=== PATIENT | male | born 1965 | race Caucasian/White ===

== ENCOUNTER 2023-05-21 22:39 | Observation (INO) | payer MEDICAID, SELFPAY ==
[2023-05-21 22:48] VITALS: BP 116/71; PULSE 102; RESP 22; TEMP 36.7; BMI 16.8
--- NOTE | 2023-05-21 22:59 | ED_ITS ---
HPI - General Adult General Chief complaint: Shortness of Breath/Dyspnea Stated complaint: Shorthness of Breath Time Seen by Provider: 05/21/23 22:58 Source: patient Mode of arrival: walk-in History of Present Illness HPI narrative: patient has history of COPD, is a daily smoker and also an alcoholic. Drinks beer daily. Not aware of any withdrawal from alcohol because he is always drinking. Was seen by his PCP and medical technician assistant 3 days ago and informed he needed to be in the hospital due to low oxygen levels. He denies any chest pain. no more short of breath than usual. No nausea or fever Related Data Home Medications Medication Instructions Recorded Confirmed albuterol sulfate 90 mcg/actuation 2 inh inhalation Q4H 05/21/23 05/21/23 aerosol inhaler budesonide-formoterol HFA 160 2 puff inhalation Q12H 05/21/23 05/21/23 mcg-4.5 mcg/actuation aerosol inhaler (Symbicort) meloxicam 15 mg tablet 15 mg PO QDAY 05/21/23 05/21/23 montelukast 10 mg tablet 10 mg PO QDAY 05/21/23 05/21/23 omeprazole 20 mg capsule,delayed 20 mg PO QDAY 05/21/23 05/21/23 release Allergies Allergy/AdvReac Type Severity Reaction Status Date / Time No Known Drug Allergies Allergy Verified 05/21/23 22:55 Review of Systems ROS Status of ROS 10 or more systems reviewed and unremarkable except as noted in history and below PFSH [facility] Medical History (Updated 05/22/23 @ 05:53 by Beth Walker RN) COPD (chronic obstructive pulmonary disease) ?J44.9 - Chronic obstructive pulmonary disease, unspecified (ICD-10) Kidney disease ?N28.9 - Disorder of kidney and ureter, unspecified (ICD-10) Liver disease ?K76.9 - Liver disease, unspecified (ICD-10) Family History (Updated 05/22/23 @ 05:54 by Beth Walker RN) Other Family history of COPD (chronic obstructive pulmonary disease) Family history of cancer Social History (Updated 05/22/23 @ 05:57 by Beth Walker RN) Within the past year, how often did you have a drink containing alcohol: 4 or more times a week Within the past year, how many standard drinks containing alcohol did you have on a typical day: 7 to 9 Within the past year, how often did you have six or more drinks on one occasion: daily or almost daily Total score: 10 Score interpretation: A score of 4 or more indicates drinking is likely to affect patient's safety. Smoking status: Current every day smoker Non-prescribed substance use: cannabis (any form) Highest level of school completed/degree received: GED or equivalent Are you now , , , , never or living with a partner: never In a typical week, how many times do you talk on the telephone with family, friends, or neighbors: twice per week How often do you get together with friends or relatives: twice per week How often do you attend pentecostal or oriental orthodox services: never Do you belong to any clubs or organizations such as pentecostal groups unions, [employer] or athletic groups, or school groups: no Total score: 1 Score interpretation: A score of less than or equal to 1 indicates the most socially isolated. Little interest or pleasure in doing things: several days Feeling down, depressed, or hopeless: several days Feel stressed/tense/nervous/anxious/difficulty sleeping: to some extent Do you think of yourself as: straight/heterosexual Gender Identity: male Exam Constitutional Vital Signs, click to edit/add: Last Vital Signs Temp 97.8 F 05/22/23 05:55 Pulse 68 05/22/23 05:55 Resp 18 05/22/23 05:55 BP 100/64 05/22/23 05:55 Pulse Ox 95 05/22/23 05:55 O2 Del Method Nasal Cannula 05/22/23 05:55 O2 Flow Rate 2 05/22/23 05:55 FiO2 2 05/22/23 01:06 Common normals: no apparent distress (RA pulse ox after he walked into the exam room was 84%. No distress) and well nourished (pulse ox shortly improved to >90% after sitting down) Eye Common normals: PERRL, EOMs intact bilaterally and conjunctivae normal Respiratory Other: diminished breath sounds Cardio Common normals: regular rate, regular rhythm, S1 normal heart sound and S2 normal heart sound GI Common normals: Normal to inspection, nondistended, normoactive bowel sounds present and soft to palpation Extremity Common normals: normal to inspection and full ROM Neuro Common normals: oriented x3, CN's II-XII intact bilaterally, moves all extremities and no focal motor deficits Psych Appearance: grossly normal Course Vital Signs Vital signs: Vital Signs Temperature 98.0 F 05/21/23 22:48 Pulse Rate 102 H 05/21/23 22:48 Respiratory Rate 22 05/21/23 22:48 Blood Pressure 116/71 05/21/23 22:48 Oxygen Delivery Method Room Air 05/21/23 22:48 Temperature 97.8 F 05/22/23 05:55 Pulse Rate 68 05/22/23 05:55 Respiratory Rate 18 05/22/23 05:55 Blood Pressure 100/64 05/22/23 05:55 Pulse Oximetry 95 05/22/23 05:55 Oxygen Delivery Method Nasal Cannula 05/22/23 05:55 Oxygen Delivery Flow Rate 2 05/22/23 05:55 Fraction of Inspired Oxygen 2 05/22/23 01:06 Medical Decision Making MDM Narrative Medical decision making narrative: history of COPD , daily smoker and alcoholic. Daily drinker. Advised by his medical technician assistant he should be hospitalized because of his lungs and low levels of oxygen. Pulse ox when he first got into the exam room was 84%. After he sat down it increased to 90%. since he has been waiting it drop back down to 86% on RA at rest. cxray with emphysematous changes. sodium 129 and ETOH 192. Patient is agreeable to stay in the hospital overnight Lab Data Labs: Lab Results 05/21/23 Range/Units 23:06 WBC 5.8 (4.0-11.0) 10^3/uL RBC 4.08 L (4.70-6.10) 10^6/uL Hgb 14.4 (14.0-18.0) g/dL Hct 41.6 L (42.0-54.0) % MCV 102.0 H (80.0-94.0) fL MCH 35.3 H (25.9-34.0) pg MCHC 34.6 (29.9-35.2) g/dL RDW 13.6 (11.0-15.0) % Plt Count 143 L (150-450) 10^3/uL MPV 9.6 (9.5-13.5) fL Neut % (Auto) 52.9 (43.0-75.0) % Lymph % (Auto) 33.4 (20.5-60.0) % Gilliam % (Auto) 11.7 (1.7-12.0) % Eos % (Auto) 1.0 (0.9-7.0) % Baso % (Auto) 0.7 (0.2-2.0) % Neut # (Auto) 3.0 (1.4-6.5) 10^3/uL Lymph # (Auto) 1.9 (1.2-3.8) 10^3/uL [place] # (Auto) 0.7 (0.3-0.8) 10^3/uL Eos # (Auto) 0.1 (0.0-0.7) 10^3/uL Baso # (Auto) 0.0 (0.0-0.1) 10^3/uL Abs Immat Gran (auto) 0.02 (0.00-0.03) 10^3/uL Imm/Tot Granulo (auto) 0.3 (0.0-0.5) % Sodium 129 L (136-145) mmol/L Potassium 3.9 (3.5-5.1) mmol/L Chloride 92 L (98-107) mmol/L Carbon Dioxide 29.1 (21.0-32.0) mmol/L Anion Gap 11.8 BUN 5.0 L (7.0-18.0) mg/dL Creatinine 0.65 L (0.70-1.30) mg/dL Est GFR ( Amer) >60 (>=60) Est GFR (Non-Af Amer) >60 (>=60) BUN/Creatinine Ratio 7.7 Glucose 80 (74-106) mg/dL Calcium 8.1 L (8.5-10.1) mg/dL Total Bilirubin 0.7 (0.2-1.0) mg/dL AST 22 (15-37) U/L ALT 23 (16-63) U/L Alkaline Phosphatase 73 (46-116) U/L Troponin I High Sens 7.4 (4.0-76.1) pg/mL Total Protein 6.7 (6.4-8.2) g/dL Albumin 3.6 (3.4-5.0) g/dL Globulin 3.1 g/dL Albumin/Globulin Ratio 1.2 Ethanol Quant 192 mg/dL Discharge Plan Discharge Chief Complaint: Shortness of Breath/Dyspnea Clinical Impression: Alcohol abuse, Hypoxemia, Emphysema of lung Time of Disposition Decision: 00:56 Condition: Fair Discharge Date/Time: 05/22/23 04:15
--- NOTE | 2023-05-21 23:05 | XR_ITS ---
The [address] [address] Patient Name: VINAY SCHWARZ MRN: [id number] date: 1965 Sex: M Assigned Patient Location: ER Current Patient Location: ER Accession/Order Number: [id number] Exam Date: 05/21/2023 23:50 Report Date: 05/22/2023 00:12 At the request of: DANNY RAMÍREZ Procedure: XR chest 1V EXAM: XR chest 1V HISTORY: short of breath COMPARISON: CT chest 02/11/2021, chest x-ray 02/11/2022 TECHNIQUE: Single frontal view chest x-ray FINDINGS: Extensive bilateral COPD with hyperexpanded right lung. Mild bilateral lower lung linear atelectatic/scar. Mildly prominent thoracic aortic contour, similar to prior exams. Cardiac size is unremarkable. No lung consolidation, large pleural effusions, pneumothorax, or acute bony abnormality. Remote bilateral ribs deformity. XR/XR chest 1V IMPRESSION: Extensive bilateral COPD with hyperexpanded right lung. Mild bilateral lower lung linear atelectatic/scar. Mildly prominent thoracic aortic contour, similar to prior exams. Electronically authenticated by: NUVIA PRICE Date: 05/22/2023 00:12
[2023-05-21 23:14] VITALS: O2SAT 92
[2023-05-21 23:19] LABS: Basophils Percent Auto 0.7 % (0.2-2.0); Eosinophils Absolute Auto 0.1 10^3/uL (0.0-0.7); Hematocrit 41.6 % (42.0-54.0); Hemoglobin 14.4 g/dL (14.0-18.0); Immature Granulocytes Abs Auto 0.02 10^3/uL (0.00-0.03); Immature Granulocytes Pct Auto 0.3 % (0.0-0.5); Lymphocytes Absolute Auto 1.9 10^3/uL (1.2-3.8); Lymphocytes Percent Auto 33.4 % (20.5-60.0); Mean Corpuscular HGB Conc 34.6 g/dL (29.9-35.2); Mean Corpuscular Hemoglobin 35.3 pg (25.9-34.0); Mean Platelet Volume 9.6 fL (9.5-13.5); Monocytes Absolute Auto 0.7 10^3/uL (0.3-0.8); Monocytes Percent Auto 11.7 % (1.7-12.0); Neutrophils Percent Auto 52.9 % (43.0-75.0); Platelet Count 143 10^3/uL (150-450); Red Blood Count 4.08 10^6/uL (4.70-6.10); Red Cell Distribution Width 13.6 % (11.0-15.0); White Blood Count 5.8 10^3/uL (4.0-11.0)
[2023-05-21 23:38] LABS: Alanine Aminotransferase 23 U/L (16-63); Albumin Globulin Ratio 1.2; Albumin Level 3.6 g/dL (3.4-5.0); Alkaline Phosphatase 73 U/L (46-116); Anion Gap 11.8; Aspartate Amino Transferase 22 U/L (15-37); BUN Creatinine Ratio 7.7; Bilirubin Total 0.7 mg/dL (0.2-1.0); Calcium 8.1 mg/dL (8.5-10.1); Carbon Dioxide 29.1 mmol/L (21.0-32.0); Chloride 92 mmol/L (98-107); Estimated GFR (African America >60 (>=60); Estimated GFR (Non-African Ame >60 (>=60); Ethanol 192 mg/dL; Globulin 3.1 g/dL; Glucose 80 mg/dL (74-106); Potassium 3.9 mmol/L (3.5-5.1); Sodium 129 mmol/L (136-145); Total Protein 6.7 g/dL (6.4-8.2); Troponin I High Sensitivity 7.4 pg/mL (4.0-76.1)
[2023-05-22] VITALS (20 sets, daily range): BP systolic 91–142; BP diastolic 46–83; PULSE 68–102; RESP 18–20; TEMP 36.6; O2SAT 77–97; BMI 17.2
--- NOTE | 2023-05-22 01:49 | CT_ITS ---
[address] [address] Patient Name: VINAY SCHWARZ MRN: [id number] date: 1965 Sex: M Assigned Patient Location: ER Current Patient Location: [place] Accession/Order Number: [id number] Exam Date: 05/22/2023 02:18 Report Date: 05/22/2023 23:37 At the request of: DANNY RAMÍREZ Procedure: CT angio chest EXAMINATION: CT angio chest, 05/22/2023 2:18 AM EDT HISTORY: Shortness of breath. COMPARISON: 02/11/2021. TECHNIQUE: CT angiography of the chest was performed with IV contrast. MIP (maximum intensity projection) images or 3D post processing was performed. CT dose reduction technique was used, including Automated Exposure Control. FINDINGS: TUBES AND IMPLANTS: None. CHEST: CHEST WALL AND LOWER NECK: Unremarkable. MEDIASTINUM AND SNEHAL: Unremarkable. BONES: Dextroconvex scoliosis. No suspicious lesions. Multilevel degenerative changes of the spine. AORTA: Ectatic aortic root measuring 4.5 cm. No dissection. PULMONARY ARTERIES: No embolism. CORONARY ARTERIES: Severe coronary artery calcifications. HEART: Not enlarged. LUNG AND AIRWAYS: Background of moderate centrilobular and paraseptal emphysema. PLEURA: Unremarkable. UPPER ABDOMEN: No acute finding. CT/CT angio chest IMPRESSION: 1. No evidence of pulmonary embolism or other acute intrathoracic process. 2. Background of moderate centrilobular and paraseptal emphysema. 3. Severe coronary artery calcification. 4. Ectatic aortic root measuring 4.5 cm. Electronically authenticated by: DEVEN CAMPOS Date: 05/22/2023 23:37
[2023-05-22] MEDS: 0.9 % SODIUM CHLORIDE 1,000 ML 1000 ML IV (01:55)
[2023-05-22 06:32] LABS: Basophils Percent Auto 0.5 % (0.2-2.0); Eosinophils Absolute Auto 0.1 10^3/uL (0.0-0.7); Eosinophils Percent Auto 1.2 % (0.9-7.0); Hematocrit 39.2 % (42.0-54.0); Hemoglobin 13.7 g/dL (14.0-18.0); Immature Granulocytes Abs Auto 0.03 10^3/uL (0.00-0.03); Immature Granulocytes Pct Auto 0.5 % (0.0-0.5); Lymphocytes Absolute Auto 1.2 10^3/uL (1.2-3.8); Mean Corpuscular HGB Conc 34.9 g/dL (29.9-35.2); Mean Corpuscular Hemoglobin 35.8 pg (25.9-34.0); Mean Corpuscular Volume 102.3 fL (80.0-94.0); Mean Platelet Volume 9.3 fL (9.5-13.5); Monocytes Absolute Auto 0.7 10^3/uL (0.3-0.8); Monocytes Percent Auto 12.3 % (1.7-12.0); Neutrophils Absolute Auto 3.9 10^3/uL (1.4-6.5); Neutrophils Percent Auto 65.5 % (43.0-75.0); Platelet Count 130 10^3/uL (150-450); Red Blood Count 3.83 10^6/uL (4.70-6.10); Red Cell Distribution Width 13.8 % (11.0-15.0)
[2023-05-22 06:49] LABS: Alanine Aminotransferase 19 U/L (16-63); Albumin Globulin Ratio 1.1; Albumin Level 3.1 g/dL (3.4-5.0); Alkaline Phosphatase 80 U/L (46-116); Anion Gap 10.4; Aspartate Amino Transferase 10 U/L (15-37); BUN Creatinine Ratio 10.5; Bilirubin Total 0.5 mg/dL (0.2-1.0); Carbon Dioxide 30.9 mmol/L (21.0-32.0); Chloride 98 mmol/L (98-107); Estimated GFR (African America >60 (>=60); Estimated GFR (Non-African Ame >60 (>=60); Globulin 2.9 g/dL; Glucose 83 mg/dL (74-106); Potassium 4.3 mmol/L (3.5-5.1); Sodium 135 mmol/L (136-145)
[2023-05-22 06:53] LABS: INR 0.97; Prothrombin Time 10.3 sec (9.0-11.6)
--- NOTE | 2023-05-22 08:24 | P.HP_ITS ---
H&P: HPI History of Present Illness Chief complaint: Shorthness of Breath Narrative: patient is a 57-year-old male with past medical history of smoking about a pack and a half a day, known chronic obstructive pulmonary disease emphysema and GERD.patient reports a proximally five months ago developed a acute viral illness that affected his breathing creating more shortness of breath. He has been visiting his primary care physician and has pulmonary nurse practitioner who both told him recently that his oxygen saturations were low and he needed to go to the Emergency Room. He finally presented to the emergency room last night with some shortness of breath. This morning he states the shortness of breath is still there he is using 2 L nasal cannula. He also notes that he has not been using his inhalers like he should. He still continues to smoke and has no desire to quit.he also drinks daily and his ethanol level was of elevated at the time of admission.patient had a normal white blood cell count of 6.0, normal troponins,normal chest x-ray and CTA with exception of moderate emphysema noted with severe coronary artery calcifications. Patient was admitted for further plan of care. At the time of admission exam he denies any coughing fevers chills or shortness of breath. Review of Systems ROS Narrative ROS: a complete review of systems were reviewed with patient and are positive as below or listed in History of Chief Complaint. General: no fever, chills, night sweats Head: no headache, trauma, visual changes, nausea or vomiting Skin: no reported rashes, itching or sores Eyes: no blurriness of vision Ears: no reported hearing loss, vertigo, earache, or tinnitus Throat: no sore throat, hoarseness, swelling of neck, or tongue pain Heart: no chest pain Lungs:some shortness of breath no cough GI: no diarrhea or vomiting/nausea Urinary: no urinary urgency, frequency or pain Neuro: no numbness or tingling HEM: no bleeding issues or bruising ENDO: no thyroid problems Psych: no anxiety or depression [facility] Medical History COPD (chronic obstructive pulmonary disease) ?J44.9 - Chronic obstructive pulmonary disease, unspecified (ICD-10) Kidney disease ?N28.9 - Disorder of kidney and ureter, unspecified (ICD-10) Liver disease ?K76.9 - Liver disease, unspecified (ICD-10) Family History Other Family history of COPD (chronic obstructive pulmonary disease) Family history of cancer Social History Within the past year, how often did you have a drink containing alcohol: 4 or more times a week Within the past year, how many standard drinks containing alcohol did you have on a typical day: 7 to 9 Within the past year, how often did you have six or more drinks on one occasion: daily or almost daily Total score: 10 Score interpretation: A score of 4 or more indicates drinking is likely to affect patient's safety. Smoking status: Current every day smoker Non-prescribed substance use: cannabis (any form) Highest level of school completed/degree received: GED or equivalent Are you now , , , , never or living with a partner: never In a typical week, how many times do you talk on the telephone with family, friends, or neighbors: twice per week How often do you get together with friends or relatives: twice per week How often do you attend yarsanism or jewish services: never Do you belong to any clubs or organizations such as yarsanism groups unions, fraternal or athletic groups, or school groups: no Total score: 1 Score interpretation: A score of less than or equal to 1 indicates the most socially isolated. Little interest or pleasure in doing things: several days Feeling down, depressed, or hopeless: several days Feel stressed/tense/nervous/anxious/difficulty sleeping: to some extent Do you think of yourself as: straight/heterosexual Gender Identity: male Meds Home Medications and Allergies Home Medications Medication Instructions Recorded Confirmed Type albuterol sulfate 90 mcg/actuation 2 inh inhalation Q4H 05/21/23 05/21/23 Hi story aerosol inhaler budesonide-formoterol HFA 160 2 puff inhalation Q12H 05/21/23 05/21/23 History mcg-4.5 mcg/actuation aerosol inhaler (Symbicort) meloxicam 15 mg tablet 15 mg PO QDAY 05/21/23 05/21/23 History montelukast 10 mg tablet 10 mg PO QDAY 05/21/23 05/21/23 History omeprazole 20 mg capsule,delayed 20 mg PO QDAY 05/21/23 05/21/23 History release Allergies Allergy/AdvReac Type Severity Reaction Status Date / Time No Known Drug Allergies Allergy Verified 05/21/23 22:55 Exam Narrative Exam Narrative: General: Patient is alert, and oriented to person, place and time with normal affect, proper hygiene, cachexia noted Skin: no visible rashes, or ulcers Head: atraumatic, acephalic Eyes: PERRLA, no nystagmus present, conjunctiva clear, no scleral icterus Ears: normal gross auditory acuity Nose: symmetric, no discharge, no maxillary or frontal sinus tenderness Mouth/Throat: no erythema, exudate, or tonsillar enlargement, normal dentition Neck: no masses palpated, normal thyroid, no JVD or audible carotid bruits Heart: Normal rate and rhythm, no murmurs/rubs/gallops Lungs: no audible wheezes, crackles and diminished breath sounds all lung whaley Abdomen: Normal audible bowel sounds, no distension, No palpable masses, no organomegaly, no rebound/guarding/ or rigidity Musculoskeletal: muscle atrophy noted, ROM is limited due to being in hospital bed, no swelling bilateral lower extremities Neuro: CN II-X grossly intact, normal sensation upper and lower extremities Constitutional Vital Signs, click to edit/add: Last Vital Signs Temp 97.8 F 05/22/23 05:55 Pulse 68 05/22/23 05:55 Resp 18 05/22/23 05:55 BP 100/64 05/22/23 05:55 Pulse Ox 95 05/22/23 05:55 O2 Del Method Nasal Cannula 05/22/23 05:55 O2 Flow Rate 2 05/22/23 05:55 FiO2 2 05/22/23 01:06 Results Labs Labs: Short CBC 05/21/23 05/22/23 Range/Units 23:06 06:20 WBC 5.8 6.0 (4.0-11.0) 10^3/uL Hgb 14.4 13.7 L (14.0-18.0) g/dL Hct 41.6 L 39.2 L (42.0-54.0) % Plt Count 143 L 130 L (150-450) 10^3/uL BMP 05/21/23 05/22/23 23:06 06:20 Sodium 129 L 135 L Potassium 3.9 4.3 Chloride 92 L 98 Carbon Dioxide 29.1 30.9 BUN 5.0 L 6.0 L Creatinine 0.65 L 0.57 L Glucose 80 83 Calcium 8.1 L 8.0 L Liver Function 05/21/23 05/22/23 Range/Units 23:06 06:20 Total Bilirubin 0.7 0.5 (0.2-1.0) mg/dL AST 22 10 L (15-37) U/L ALT 23 19 (16-63) U/L Alkaline Phosphatase 73 80 (46-116) U/L Albumin 3.6 3.1 L (3.4-5.0) g/dL Assessment and Plan Assessment and Plan (1) Acute exacerbation of chronic obstructive pulmonary disease: Assessment and Plan: will place on Solu-Medrol one twenty-five every 6 hours, and Levaquin 500 mg IV daily, will continue Singulair, we'll also place on scheduled DuoNeb's every 6 hours as needed albuterol O PEP therapy, and Pulmicort scheduled. Normal CTA of the chest and chest x-ray for pneumonia. acute respiratory viral panel was negative (2) Alcohol abuse: Assessment and Plan: ciwa scores, and as needed ativan, ETHANOL level was one twenty-five (3) Hypoxemia: Assessment and Plan: most likely from acute viral illness several months ago and uncontrolled chronic obstructive pulmonary disease who continues to smoke, is doing well on 2 L nasal cannula. We'll probably need home oxygen. Patient has no desire to quit alcohol or smoking. (4) GERD (gastroesophageal reflux disease): Assessment and Plan: continue PPI Plan patient is a full code Continue Lovenox for deep vein thrombosis prophylaxis Patient is in observation status and is not expected to stay more than two midnights
[2023-05-22 08:54] LABS: Magnesium 1.7 mg/dL (1.8-2.4)
[2023-05-22 09:13] LABS: Adenovirus NOT DETECTED (NOT DETECTE); Bordetella parapertussis NOT DETECTED (NOT DETECTE); Coronavirus 229E NOT DETECTED (NOT DETECTE); Coronavirus HKU1 NOT DETECTED (NOT DETECTE); Coronavirus NL63 NOT DETECTED (NOT DETECTE); Coronavirus OC43 NOT DETECTED (NOT DETECTE); Human Metapneumovirus NOT DETECTED (NOT DETECTE); Human Rhinovirus/Enterovirus NOT DETECTED (NOT DETECTE); Influenza A NOT DETECTED (NOT DETECTE); Influenza B NOT DETECTED (NOT DETECTE); Mycoplasma pneumoniae NOT DETECTED (NOT DETECTE); Parainfluenza Virus 1 NOT DETECTED (NOT DETECTE); Parainfluenza Virus 2 NOT DETECTED (NOT DETECTE); Parainfluenza Virus 3 NOT DETECTED (NOT DETECTE); Parainfluenza Virus 4 NOT DETECTED (NOT DETECTE); Respiratory Syncytial Virus NOT DETECTED (NOT DETECTE); SARS-CoV-2 NOT DETECTED (NOT DETECTE)
[2023-05-22] MEDS: OMEPRAZOLE 20 MG CAPSULE.DR PO (09:52)
[2023-05-22] MEDS: LEVOFLOXACIN IN DEXTROSE 5 % 500 MG/100 ML PIGGYBACK 100 MG IV (09:52)
[2023-05-22] MEDS: METHYLPREDNISOLONE SOD SUCC PF 125 MG/2 ML VIAL IVP ×2 (09:52→17:59)
[2023-05-22] MEDS: MELOXICAM 7.5 MG TABLET 15 MG PO (09:52)
[2023-05-22] MEDS: LACTATED RINGER'S SOLUTION 1,000 ML 125 ML IV ×2 (09:52→18:00)
[2023-05-22] MEDS: IPRATROPIUM/ALBUTEROL SULFATE 3 ML AMPUL.NEB IH ×3 (10:40→20:02)
[2023-05-22] MEDS: BUDESONIDE 0.5 MG/2 ML AMPULE NEB IH ×2 (10:40→20:02)
[2023-05-22] MEDS: MAGNESIUM SULFATE IN WATER 2 GM/50 ML PREMIX IV (12:17)
[2023-05-22] MEDS: ACETAMINOPHEN 325 MG TABLET 650 MG PO (14:25)
[2023-05-22] MEDS: ENOXAPARIN SODIUM 40 MG/0.4 ML SYRINGE SUBQ (18:08)
[2023-05-22] MEDS: LORAZEPAM 1 MG TABLET PO (18:10)
[2023-05-22] MEDS: MONTELUKAST SODIUM 10 MG TABLET PO (19:52)
[2023-05-23] VITALS (11 sets, daily range): BP systolic 130–143; BP diastolic 69–71; PULSE 77–101; RESP 18–20; TEMP 36.3–36.6; O2SAT 90–96
[2023-05-23] MEDS: METHYLPREDNISOLONE SOD SUCC PF 125 MG/2 ML VIAL IVP ×2 (00:34→09:08)
[2023-05-23] MEDS: LORAZEPAM 1 MG TABLET PO ×2 (01:06→09:30)
[2023-05-23] MEDS: LACTATED RINGER'S SOLUTION 1,000 ML 125 ML IV (03:15)
[2023-05-23] MEDS: IPRATROPIUM/ALBUTEROL SULFATE 3 ML AMPUL.NEB IH ×2 (05:07→12:15)
[2023-05-23 05:32] LABS: Hematocrit 40.8 % (42.0-54.0); Hemoglobin 14.2 g/dL (14.0-18.0); Immature Granulocytes Abs Auto 0.04 10^3/uL (0.00-0.03); Immature Granulocytes Pct Auto 0.6 % (0.0-0.5); Lymphocytes Absolute Auto 0.5 10^3/uL (1.2-3.8); Lymphocytes Percent Auto 7.6 % (20.5-60.0); Mean Corpuscular HGB Conc 34.8 g/dL (29.9-35.2); Mean Corpuscular Hemoglobin 35.4 pg (25.9-34.0); Mean Corpuscular Volume 101.7 fL (80.0-94.0); Mean Platelet Volume 10.5 fL (9.5-13.5); Monocytes Absolute Auto 0.1 10^3/uL (0.3-0.8); Monocytes Percent Auto 2.1 % (1.7-12.0); Neutrophils Absolute Auto 5.7 10^3/uL (1.4-6.5); Neutrophils Percent Auto 89.7 % (43.0-75.0); Platelet Count 114 10^3/uL (150-450); Red Blood Count 4.01 10^6/uL (4.70-6.10); Red Cell Distribution Width 13.5 % (11.0-15.0); White Blood Count 6.3 10^3/uL (4.0-11.0)
[2023-05-23] MEDS: OMEPRAZOLE 20 MG CAPSULE.DR PO (05:33)
[2023-05-23 06:01] LABS: Alanine Aminotransferase 19 U/L (16-63); Albumin Level 3.2 g/dL (3.4-5.0); Alkaline Phosphatase 66 U/L (46-116); Anion Gap 11.9; Aspartate Amino Transferase 19 U/L (15-37); BUN Creatinine Ratio 20.8; Bilirubin Total 0.6 mg/dL (0.2-1.0); Calcium 8.7 mg/dL (8.5-10.1); Carbon Dioxide 26.6 mmol/L (21.0-32.0); Chloride 96 mmol/L (98-107); Estimated GFR (African America >60 (>=60); Estimated GFR (Non-African Ame >60 (>=60); Globulin 3.3 g/dL; Glucose 158 mg/dL (74-106); Potassium 4.5 mmol/L (3.5-5.1); Sodium 130 mmol/L (136-145); Total Protein 6.5 g/dL (6.4-8.2)
--- NOTE | 2023-05-23 08:11 | PM.PN ---
Exam Constitutional Vital Signs, click to edit/add: Last Vital Signs Temp 97.9 F 05/23/23 05:37 Pulse 86 05/23/23 07:51 Resp 18 05/23/23 05:37 BP 130/69 05/23/23 05:37 Pulse Ox 92 L 05/23/23 05:37 O2 Del Method Room Air 05/23/23 05:37 O2 Flow Rate 1 05/22/23 21:18 FiO2 2 05/22/23 01:06 Progress Note: Objective Labs Labs: Short CBC 05/23/23 Range/Units 04:39 WBC 6.3 (4.0-11.0) 10^3/uL Hgb 14.2 (14.0-18.0) g/dL Hct 40.8 L (42.0-54.0) % Plt Count 114 L (150-450) 10^3/uL BMP 05/23/23 04:39 Sodium 130 L Potassium 4.5 Chloride 96 L Carbon Dioxide 26.6 BUN 10.0 Creatinine 0.48 L Glucose 158 H Calcium 8.7 Liver Function 05/23/23 Range/Units 04:39 Total Bilirubin 0.6 (0.2-1.0) mg/dL AST 19 (15-37) U/L ALT 19 (16-63) U/L Alkaline Phosphatase 66 (46-116) U/L Albumin 3.2 L (3.4-5.0) g/dL Progress Note: A&P Assessment and Plan (1) Acute exacerbation of chronic obstructive pulmonary disease: (2) Alcohol abuse: (3) Hypoxemia: (4) GERD (gastroesophageal reflux disease):
[2023-05-23] MEDS: MELOXICAM 7.5 MG TABLET 15 MG PO (09:08)
[2023-05-23] MEDS: LEVOFLOXACIN IN DEXTROSE 5 % 500 MG/100 ML PIGGYBACK 100 MG IV (10:55)
[2023-05-23] MEDS: BUDESONIDE 0.5 MG/2 ML AMPULE NEB IH (12:16)
--- NOTE | 2023-05-23 12:53 | PM.DS1 ---
DS: Providers Provider Date of admission: 05/22/23 04:15 Primary care physician: Cristo Goldman Admitting clinician: Adina Rojo Consults: 05/22/23 Consult to Motion Picture Scene Builder Routine Reason for consult:: Transportation 05/22/23 08:25 Occupational Therapy Eval and Treat Routine Reason for consultation: weakness Has provider been notified: No Physical Therapy Eval and Treat Routine Reason for consultation: weakness Has provider been notified: No Attending physician on discharge: Bethany Guzman DS: Diagnosis Discharge Diagnosis (1) Acute exacerbation of chronic obstructive pulmonary disease: (2) Alcohol abuse: (3) Hypoxemia: (4) GERD (gastroesophageal reflux disease): DS: Summary Hospital Course Hospital Course: patient did well on levaquin, solumedrol and scheduled nebulizer treatments and inhaled steroid. At the time of discharge both his resting and ambulatory pulse ox did not drop below 90% on room air. He will not require home oxygen at this time. I spent time discussing smoking cessation importance, and getting help for alcoholism. He wishes to go home and does not wish to quit either at this time. Due to him wanting to continue to drink, I discussed that mixing withdrawal medications (benzo's) with alcohol and lead to respiratory depression and so I will not provide him with medication if he has no desire to quit. This can be done on his own terms as and outpatient under the care of his PCP. CIWA scores and given Ativan for withdrawal here. He still continues to smoke and not use his inhaler properly. He does state he will follow up with his pulmonary doctor and PCP. Will be placed on Levaquin 500mg daily for 7 days, and prednisone 20mg BID x 7 days. Continue all home meds including inhalers. Return to the ED with any worsening symptoms. Labs and chest xray at the time of discharge are stable, negative. Time spent discussing smoking cessation with patient: more than 10 minutes Status at Discharge Functional status at discharge: independent ambulation Time Spent with Patient Time attestation: Total time spent providing and/or coordinating discharge services: Time spent: greater than 30 minutes Exam Narrative Exam Narrative: General: Patient is alert, and oriented to person, place and time with normal affect, proper hygiene Heart: Normal rate and rhythm, no murmurs/rubs/gallops Lungs: no audible wheezes, crackles and diminished breath sounds all lung whaley Abdomen: Normal audible bowel sounds, no distension, No palpable masses, no organomegaly, no rebound/guarding/ or rigidity Musculoskeletal: muscle atrophy noted,no swelling bilateral lower extremities Neuro: CN II-X grossly intact, normal sensation upper and lower extremities Constitutional Vital Signs, click to edit/add: Last Vital Signs Temp 97.9 F 05/23/23 05:37 Pulse 97 H 05/23/23 12:31 Resp 18 05/23/23 05:37 BP 130/69 05/23/23 05:37 Pulse Ox 92 L 05/23/23 05:37 O2 Del Method Room Air 05/23/23 05:37 O2 Flow Rate 1 05/22/23 21:18 FiO2 2 05/22/23 01:06 DS: Data Data Completed and Pending Labs on day of discharge: Labs from last 24 hours 05/23/23 04:39 WBC 6.3 RBC 4.01 L Hgb 14.2 Hct 40.8 L MCV 101.7 H MCH 35.4 H MCHC 34.8 RDW 13.5 Plt Count 114 L MPV 10.5 Neut % (Auto) 89.7 H Lymph % (Auto) 7.6 L [place] % (Auto) 2.1 Eos % (Auto) 0.0 L Baso % (Auto) 0.0 L Neut # (Auto) 5.7 Lymph # (Auto) 0.5 L [place] # (Auto) 0.1 L Eos # (Auto) 0.0 Baso # (Auto) 0.0 Abs Immat Gran (auto) 0.04 H Imm/Tot Granulo (auto) 0.6 H Sodium 130 L Potassium 4.5 Chloride 96 L Carbon Dioxide 26.6 Anion Gap 11.9 BUN 10.0 Creatinine 0.48 L Est GFR ( Amer) >60 Est GFR (Non-Af Amer) >60 BUN/Creatinine Ratio 20.8 Glucose 158 H Calcium 8.7 Total Bilirubin 0.6 AST 19 ALT 19 Alkaline Phosphatase 66 Total Protein 6.5 Albumin 3.2 L Globulin 3.3 Albumin/Globulin Ratio 1.0 Discharge Plan Discharge Disposition: Home, Self-Care Condition: Fair Discharge Medications: New levofloxacin 500 mg tablet 500 mg PO DAILY 7 Days Qty: 7 0RF prednisone 20 mg tablet 20 mg PO BID 7 Days Qty: 14 0RF Continued budesonide-formoterol [Symbicort] 160-4.5 mcg/actuation HFA aerosol inhaler 2 puff INHALATION Q12H meloxicam 15 mg tablet 15 mg PO QDAY albuterol sulfate 90 mcg/actuation HFA aerosol inhaler 2 inh INHALATION Q4H montelukast 10 mg tablet 10 mg PO QDAY omeprazole 20 mg capsule,delayed release(DR/EC) 20 mg PO QDAY Activity: resume usual activities as tolerated Diet: advance to your usual diet Patient Instructions: Abuse of Alcohol (DC), Alcohol Withdrawal (DC) Forms: Portal Instructions Follow Up Appointments: Please call Wednesday to schedule an appt with Cristo Goldman in 5-7 days - [phone] will also need follow up with his independent jeweler 5-7 days
--- NOTE | 2023-05-24 15:35 | CM.DCFOLLOWU ---
1st attempt discharge follow up call made by Porsche Rivera on 05/24/23, no answer at this time.
--- NOTE | 2023-05-26 16:09 | CM.DCFOLLOWU ---
2nd attempt discharge follow up call made by Porsche Rivera on 05/26/23, no answer at this time
--- NOTE | 2023-05-27 15:47 | CM.DCFOLLOWU ---
3 discharge follow up calls were attempted, no answer each time.
== END 2023-05-23 13:45 | disposition home or self-care (01) ==
LOC: ER 05-22 01:44 → MS 05-22 08:17
PROVIDERS: Internal Medicine; Admitting Provider Family Medicine; Emergency Provider Internal Medicine; PCP Physician Assistant; Visit Provider Family Medicine
DX: J43.9 Emphysema, unspecified (principal); K21.9 Gastro-esophageal reflux disease without esophagitis; R09.02 Hypoxemia; F10.20 Alcohol dependence, uncomplicated; F17.210 Nicotine dependence, cigarettes, uncomplicated; K76.9 Liver disease, unspecified; N28.9 Disorder of kidney and ureter, unspecified; F12.90 Cannabis use, unspecified, uncomplicated; Z79.899 Other long term (current) drug therapy; Z20.822 Contact with and (suspected) exposure to COVID-19
CPT/HCPCS: 0202U; 36415; 71045; 71275; 80053; 80320; 83735; 84484; 85025; 85610; 94640; 94667; 94668; 94761; 96365; 96366; 96372; 96375; 96376; 99285; 99406; G0378; J2930; Q9967

== ENCOUNTER 2024-03-24 20:39 | Inpatient (IN) | payer MEDICAID, SELFPAY ==
[2024-03-24] VITALS (26 sets, daily range): BP systolic 96–108; BP diastolic 64–72; PULSE 78–118; TEMP 37.1; O2SAT 70–97
--- NOTE | 2024-03-24 20:49 | ECG_ITS ---
[facility] Test Date: 2024-03-24 Pat Name: VINAY SCHWARZ Department: Room: - Gender: Male Senior Grants Officer: : 1965 Requested By: Order Number: [id number] Reading MD: TRI ARANDA Measurements Intervals [place] Rate: 101 P: 90 AR: 170 QRS: 117 QRSD: 94 T: 56 QT: 342 QTc: 400 Interpretive Statements 1120 Sinus tachycardia 4164 Twave abnormality, possible anterior ischemia 7100 Abnormal right axis deviation Remote anteroseptal CO can't be excluded 8003 Consistent with pulmonary disease 9150 abnormal ECG Electronically Signed On 03-25-2024 12:29:32 EDT by TRI ARANDA
--- NOTE | 2024-03-24 20:49 | XR_ITS ---
The [address] [address] Patient Name: VINAY SCHWARZ MRN: [id number] date: 1965 Sex: M Assigned Patient Location: ER Current Patient Location: ER Accession/Order Number: [id number] Exam Date: 03/24/2024 21:17 Report Date: 03/24/2024 22:41 At the request of: SG PARTIDA Procedure: XR chest 1V EXAM: XR chest 1V , 03/24/2024 HISTORY: SOB, hx COPD COMPARISON: Previous x-ray from 2022. TECHNIQUE: Portable AP view upright x-ray of the chest. FINDINGS: Cardiac silhouette within normal limits. Mild dextroscoliosis of the thoracic spine. Prominent thoracic aorta. Emphysematous lungs bilaterally. No focal infiltrate or pleural effusion. No acute osseous findings. Old fractures of multiple right side ribs. XR/XR chest 1V IMPRESSION: Moderate COPD. No acute cardiopulmonary findings. Electronically authenticated by: RAUL DUNCAN Date: 03/24/2024 22:41
--- NOTE | 2024-03-24 20:52 | ED.SOB1 ---
HPI - SOB/Dyspnea General Chief Complaint: Shortness of Breath/Dyspnea Stated Complaint: sob Time Seen by Provider: 03/24/24 20:40 Source: patient Mode of arrival: Wheelchair History of Present Illness HPI Narrative: 58-year-old male presents to the emergency department for difficulty breathing. He has a history of COPD and over the past few days has been feeling this way. Exertion makes it much worse. He has not had a fever or productive cough and he has had no hemoptysis. He used his nebulizer a few hours ago. He is on oxygen at home and was told to just wear it when he needs it. Related Data Home Medications ?Medication ?Instructions ?Recorded ?Confirmed albuterol sulfate 90 mcg/actuation 2 inh inhalation Q4H 05/21/23 05/21/23 aerosol inhaler budesonide-formoterol HFA 160 2 puff inhalation Q12H 05/21/23 05/21/23 mcg-4.5 mcg/actuation aerosol inhaler (Symbicort) meloxicam 15 mg tablet 15 mg PO QDAY 05/21/23 05/21/23 montelukast 10 mg tablet 10 mg PO QDAY 05/21/23 05/21/23 omeprazole 20 mg capsule,delayed 20 mg PO QDAY 05/21/23 05/21/23 release Previous Rx's ?Medication ?Instructions ?Recorded levofloxacin 500 mg tablet 500 mg PO DAILY 7 days #7 tabs 05/23/23 prednisone 20 mg tablet 20 mg PO BID 7 days #14 tabs 05/23/23 Allergies Allergy/AdvReac Type Severity Reaction Status Date / Time No Known Drug Allergies Allergy Verified 05/21/23 22:55 Review of Systems ROS Narrative A ten point review of systems is negative except as noted above. [facility] Medical History COPD (chronic obstructive pulmonary disease) ?J44.9 - Chronic obstructive pulmonary disease, unspecified (ICD-10) Kidney disease ?N28.9 - Disorder of kidney and ureter, unspecified (ICD-10) Liver disease ?K76.9 - Liver disease, unspecified (ICD-10) Family History Other Family history of COPD (chronic obstructive pulmonary disease) Family history of cancer Social History Within the past year, how often did you have a drink containing alcohol: 4 or more times a week Within the past year, how many standard drinks containing alcohol did you have on a typical day: 7 to 9 Within the past year, how often did you have six or more drinks on one occasion: daily or almost daily Total score: 10 Score interpretation: A score of 4 or more indicates drinking is likely to affect patient's safety. Smoking status: Current every day smoker Non-prescribed substance use: cannabis (any form) Highest level of school completed/degree received: GED or equivalent Are you now , , , , never or living with a partner: never In a typical week, how many times do you talk on the telephone with family, friends, or neighbors: twice per week How often do you get together with friends or relatives: twice per week How often do you attend judaism or mandaeism services: never Do you belong to any clubs or organizations such as judaism groups unions, [employer] [place] or athletic groups, or school groups: no Total score: 1 Score interpretation: A score of less than or equal to 1 indicates the most socially isolated. Little interest or pleasure in doing things: several days Feeling down, depressed, or hopeless: several days Feel stressed/tense/nervous/anxious/difficulty sleeping: to some extent Do you think of yourself as: straight/heterosexual Gender Identity: male Exam Narrative Exam Narrative: Nurses note and vital signs reviewed and patient is not hypoxic. General: The patient appears in no acute respiratory distress. He speaking in full sentences. He appears moderately dyspneic. Skin: Warm, dry, no pallor noted. There is no rash noted. Head: Normocephalic, atraumatic Eye: Normal conjunctiva, no drainage Ears, Nose, Mouth, and Throat: oral mucosa is moist. Nares patent. Cardiovascular: Regular Rate and Rhythm, mildly tachycardic Respiratory: Breath sounds are diminished bilaterally throughout. Back: non-tender GI: Soft and nontender Musculoskeletal: Lateral lower extremity edema presents, much more on the right than the left. Neurological: Awake and alert Psychiatric: Cooperative Constitutional Vital Signs, click to edit/add: Last Vital Signs Temp 98.7 F 03/24/24 20:41 Pulse 106 H 03/24/24 21:50 Resp 22 H 03/24/24 21:50 BP 102/66 03/24/24 21:30 Pulse Ox 91 L 03/24/24 21:40 O2 Del Method Nasal Cannula 03/24/24 21:07 O2 Flow Rate 7 03/24/24 21:12 Course Vital Signs Vital signs: Vital Signs Temperature 98.7 F 03/24/24 20:41 Pulse Rate 118 H 03/24/24 20:41 Respiratory Rate 26 H 03/24/24 20:41 Blood Pressure 106/70 03/24/24 20:41 Pulse Oximetry 70 L 03/24/24 20:41 Oxygen Delivery Method Room Air 03/24/24 20:41 Temperature 98.7 F 03/24/24 20:41 Pulse Rate 106 H 03/24/24 21:50 Respiratory Rate 22 H 03/24/24 21:50 Blood Pressure 102/66 03/24/24 21:30 Pulse Oximetry 91 L 03/24/24 21:40 Oxygen Delivery Method Nasal Cannula 03/24/24 21:07 Oxygen Delivery Flow Rate 7 03/24/24 21:12 MDM - SOB/Dyspnea MDM Narrative Medical decision making narrative: The patient presents with COPD exacerbation. No evidence of pneumonia and COVID is negative. Cultures were obtained and he was given IV Levaquin and he was given IV Solu-Medrol and multiple aerosol treatments as well and he is being admitted. He will need further workup for his lower extremity edema as well. Findings are discussed with the patient and his . Differential Diagnosis Differential diagnosis: Likely acute exacerbation of chronic obstructive airways disease, congestive heart failure, community acquired pneumonia and other (COVID) Lab Data Attestation: I reviewed the patient's lab results. Labs: Lab Results 03/24/24 03/24/24 Range/Units 20:52 21:00 WBC 5.0 (4.0-11.0) 10^3/uL RBC 3.61 L (4.70-6.10) 10^6/uL Hgb 13.9 L (14.0-18.0) g/dL Hct 39.5 L (42.0-54.0) % MCV 109.4 H (80.0-94.0) fL MCH 38.5 H (25.9-34.0) pg MCHC 35.2 (29.9-35.2) g/dL RDW 14.1 (11.0-15.0) % Plt Count 111 L (150-450) 10^3/uL MPV 9.2 L (9.5-13.5) fL Neut % (Auto) 63.1 (43.0-75.0) % Lymph % (Auto) 23.8 (20.5-60.0) % Warrick % (Auto) 11.7 (1.7-12.0) % Eos % (Auto) 0.2 L (0.9-7.0) % Baso % (Auto) 0.6 (0.2-2.0) % Neut # (Auto) 3.2 (1.4-6.5) 10^3/uL Lymph # (Auto) 1.2 (1.2-3.8) 10^3/uL Warrick # (Auto) 0.6 (0.3-0.8) 10^3/uL Eos # (Auto) 0.0 (0.0-0.7) 10^3/uL Baso # (Auto) 0.0 (0.0-0.1) 10^3/uL Abs Immat Gran (auto) 0.03 (0.00-0.03) 10^3/uL Imm/Tot Granulo (auto) 0.6 H (0.0-0.5) % Sodium 128 L (136-145) mmol/L Potassium 4.0 (3.5-5.1) mmol/L Chloride 89 L (98-107) mmol/L Carbon Dioxide 31.4 (21.0-32.0) mmol/L Anion Gap 11.6 BUN 2.0 L (7.0-18.0) mg/dL Creatinine 0.59 L (0.70-1.30) mg/dL Est GFR ( Amer) >60 (>=60) Est GFR (Non-Af Amer) >60 (>=60) BUN/Creatinine Ratio 3.4 Glucose 130 H (74-106) mg/dL Calcium 8.8 (8.5-10.1) mg/dL Troponin I High Sens 26.0 (4.0-76.1) pg/mL SARS-CoV-2 Ag (CV2AG) Negative (NEGATIVE) Imaging Data Chest x-ray: Radiologist's impression: ITS Impressions Chest X-Ray 03/24/24 20:49 IMPRESSION: Moderate COPD. No acute cardiopulmonary findings. Electronically authenticated by: RAUL DUNCAN Date: 03/24/2024 22:41 ECG Data Attestation: I personally reviewed and interpreted this ECG as follows: (EKG on my interpretation shows sinus rhythm with a rate of 101.) Critical Care Time Critical Care Time Critical Care Time: Yes Total Critical Care Time: 35 Attestation: Due to the high probability of sudden and clinically significant deterioration in the patient's condition he/she required the highest level of my preparedness to intervene urgently I provided critical care time including documentation time, medication orders and management, reevaluation, vital sign assessment, ordering and reviewing of lab tests, ordering and reviewing of x-ray studies, and admission orders. Aggregate critical care time is 35 minutes including only time during which I was engaged in work directly related to his/her care and did not include time spent treating other patients simultaneously. Discharge Plan Discharge Chief Complaint: Shortness of Breath/Dyspnea Clinical Impression: Acute exacerbation of chronic obstructive pulmonary disease Patient Disposition: Admitted As Inpatient Time of Disposition Decision: 23:10 Condition: Fair
[2024-03-24] MEDS: IPRATROPIUM/ALBUTEROL SULFATE 3 ML AMPUL.NEB IH (21:07)
[2024-03-24 21:12] LABS: Basophils Percent Auto 0.6 % (0.2-2.0); Eosinophils Percent Auto 0.2 % (0.9-7.0); Hematocrit 39.5 % (42.0-54.0); Hemoglobin 13.9 g/dL (14.0-18.0); Immature Granulocytes Abs Auto 0.03 10^3/uL (0.00-0.03); Immature Granulocytes Pct Auto 0.6 % (0.0-0.5); Lymphocytes Absolute Auto 1.2 10^3/uL (1.2-3.8); Lymphocytes Percent Auto 23.8 % (20.5-60.0); Mean Corpuscular HGB Conc 35.2 g/dL (29.9-35.2); Mean Corpuscular Hemoglobin 38.5 pg (25.9-34.0); Mean Corpuscular Volume 109.4 fL (80.0-94.0); Mean Platelet Volume 9.2 fL (9.5-13.5); Monocytes Absolute Auto 0.6 10^3/uL (0.3-0.8); Monocytes Percent Auto 11.7 % (1.7-12.0); Neutrophils Absolute Auto 3.2 10^3/uL (1.4-6.5); Neutrophils Percent Auto 63.1 % (43.0-75.0); Platelet Count 111 10^3/uL (150-450); Red Blood Count 3.61 10^6/uL (4.70-6.10); Red Cell Distribution Width 14.1 % (11.0-15.0)
[2024-03-24 21:25] LABS: Internal Control Within Normal Limits; SARS-CoV-2 Ag NEGATIVE (NEGATIVE)
[2024-03-24 21:33] LABS: Anion Gap 11.6; BUN Creatinine Ratio 3.4; Calcium 8.8 mg/dL (8.5-10.1); Carbon Dioxide 31.4 mmol/L (21.0-32.0); Chloride 89 mmol/L (98-107); Estimated GFR (African America >60 (>=60); Estimated GFR (Non-African Ame >60 (>=60); Glucose 130 mg/dL (74-106); Sodium 128 mmol/L (136-145)
--- NOTE | 2024-03-24 21:36 | RESP.RT ---
patient 97% with 7L breathing treatment. After breathing treatment patients nasal cannula was decreased to 2L per Dr. Bautista's request.
[2024-03-24] MEDS: ALBUTEROL SULFATE 2.5 MG/3 ML VIAL NEB IH (23:45)
[2024-03-24] MEDS: LEVOFLOXACIN IN DEXTROSE 5 % 750 MG/150 ML PREMIX 100 MG IV (23:50)
[2024-03-25] VITALS (32 sets, daily range): BP systolic 98–141; BP diastolic 52–88; PULSE 67–92; TEMP 36.6–36.8; O2SAT 82–96; BMI 17.7
--- NOTE | 2024-03-25 00:42 | US_ITS ---
The [address] [address] Patient Name: VINAY SCHWARZ MRN: [id number] date: 1965 Sex: M Assigned Patient Location: MS Current Patient Location: MS Accession/Order Number: [id number] Exam Date: 03/25/2024 08:09 Report Date: 03/25/2024 12:18 At the request of: MOHAMUD ESTRADA Procedure: US venous doppler LE BI CLINICAL DATA: Evaluate for venous thrombosis. Leg pain. Swelling. Duration 1 week. PROCEDURE: Bilateral lower extremity venous duplex ultrasound TECHNIQUE: Gonzales-scale, color flow, and waveform spectral analysis was performed of the bilateral lower extremities. FINDINGS: The bilateral common femoral, profunda femoral, femoral, and popliteal veins were compressible. The saphenous veins were compressible. No venous thrombosis was seen. The veins fill with color Doppler. Augmentation was normal. US/US venous doppler LE BI IMPRESSION: 1. No acute lower extremity deep venous thrombosis. 2. No superficial venous thrombosis. Electronically authenticated by: Luis M ANN Date: 03/25/2024 12:18
[2024-03-25] MEDS: METHYLPREDNISOLONE SOD SUCC PF 125 MG/2 ML VIAL IVP (01:00)
[2024-03-25] MEDS: ENOXAPARIN SODIUM 40 MG/0.4 ML SYRINGE SUBQ (02:28)
[2024-03-25] MEDS: MELOXICAM 7.5 MG TABLET 15 MG PO ×2 (02:29→09:43)
[2024-03-25] MEDS: MONTELUKAST SODIUM 10 MG TABLET PO ×2 (02:29→09:43)
[2024-03-25] MEDS: TEMAZEPAM 15 MG CAPSULE PO (02:29)
[2024-03-25] MEDS: NICOTINE 21 MG PATCH.TD24 TD (02:40)
--- NOTE | 2024-03-25 06:32 | ECG_ITS ---
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 Electronically Signed On 03-25-2024 12:33:19 EDT by TRI ARANDA
[2024-03-25 07:03] LABS: Hematocrit 38.9 % (42.0-54.0); Hemoglobin 13.5 g/dL (14.0-18.0); Mean Corpuscular HGB Conc 34.7 g/dL (29.9-35.2); Mean Corpuscular Hemoglobin 37.7 pg (25.9-34.0); Mean Corpuscular Volume 108.7 fL (80.0-94.0); Mean Platelet Volume 9.6 fL (9.5-13.5); Platelet Count 102 10^3/uL (150-450); Red Blood Count 3.58 10^6/uL (4.70-6.10); Red Cell Distribution Width 13.6 % (11.0-15.0); White Blood Count 3.6 10^3/uL (4.0-11.0)
[2024-03-25 07:20] LABS: INR 1.03; Partial Thromboplastin Time 34.8 sec (22.3-36.2); Prothrombin Time 10.9 sec (9.0-11.6)
[2024-03-25 07:44] LABS: Alanine Aminotransferase 40 U/L (16-63); Albumin Globulin Ratio 1.1; Albumin Level 3.1 g/dL (3.4-5.0); Alkaline Phosphatase 76 U/L (46-116); Anion Gap 11.4; Aspartate Amino Transferase 45 U/L (15-37); BUN Creatinine Ratio 4.3; Bilirubin Total 0.7 mg/dL (0.2-1.0); Calcium 8.6 mg/dL (8.5-10.1); Chloride 94 mmol/L (98-107); Estimated GFR (African America >60 (>=60); Estimated GFR (Non-African Ame >60 (>=60); Globulin 2.7 g/dL; Glucose 124 mg/dL (74-106); Magnesium 1.5 mg/dL (1.8-2.4); Phosphorus 4.4 mg/dL (2.6-4.7); Potassium 4.4 mmol/L (3.5-5.1); Sodium 132 mmol/L (136-145); Total Protein 5.8 g/dL (6.4-8.2)
[2024-03-25 07:55] LABS: Lymphocytes Absolute Manual 0.18 10^3/uL (1.20-3.80); Macrocytosis 3+; Monocytes Absolute Manual 0.03 10^3/uL (0.30-0.80); Segmented Neut Absolute Manual 3.38 10^3/uL (1.4-6.5)
[2024-03-25 08:01] LABS: Troponin I High Sensitivity 16.4 pg/mL (4.0-76.1)
--- NOTE | 2024-03-25 08:16 | CA_ITS ---
Patient Name: VINAY SCHWARZ MR#: [id number] : 1965 Exam Date: 03/27/2024 Ordering Doctor: SHAIKH Tasha TONY . ECHOCARDIOGRAM REPORT PROCEDURE: CA ECHO DOPPLER COMPLETE INDICATIONS: CHF, COPD, emphysema, opiod use - remission, chronic alcoholism COMPARISON: None. DESCRIPTION: COMPLETE ECHOCARDIOGRAM Real-time transthoracic echocardiography with 2D, M-mode, spectral and color flow Doppler performed. QUALITY: Technical quality was good. LEFT VENTRICLE: Normal chamber size. Normal left ventricular wall thickness. Normal systolic function. LV EF: Normal left ventricular ejection fraction, (>55%). DIASTOLIC: Normal diastolic function. ATRIAL SEPTUM: Visually appears intact. LEFT ATRIUM: Normal chamber size. RIGHT ATRIUM: Normal chamber size. RIGHT VENTRICLE: Normal chamber size. Normal right ventricular systolic function. TRICUSPID VALVE: Normal mobility and thickness. No stenosis with trivial regurgitation. Unable to assess right-sided pressures due to lack of measurable tricuspid regurgitation. MITRAL VALVE: Normal mobility and thickness. No evidence of mitral valve stenosis. There is no mitral annular calcification. No mitral regurgitation. AORTIC VALVE: Likely trileaflet valve. No visible sclerosis. Normal leaflet mobility. No evidence of aortic valve stenosis. No aortic regurgitation. AORTIC ROOT: Aortic root is moderately dilated (4.5 cm). The ascending aorta is moderately dilated measuring 4.3 cm. Aortic arch is normal in size. PULMONIC VALVE: Normal thickness and mobility. No stenosis. No regurgitation. PERICARDIUM: No evidence of pericardial effusion. IVC: IVC is normal in size, does not fully collapse. PLEURA: CONCLUSION: 1. Normal left ventricular size and systolic function. LVEF is 60 to 65%. 2. Normal right ventricular size and systolic function. 3. No significant valvular dysfunction. 4. Normal diastolic function. 5. Unable to assess right-sided pressures due to lack of measurable tricuspid regurgitation. 6. Moderately dilated aortic root measuring 4.5 cm, and ascending aorta measuring 4.3 cm. Adult Echocardiography Procedure Report Left Ventricle LVEDD (3.7 - 5.6 cm): 4.32 cm LVESD (2.2 - 4.0 cm): 2.72 cm LVIVS thickness (0.6 - 1.2 cm): 0.95 cm LVPW thickness (0.5 - 1.0 cm): 0.96 cm e': 0.20 m/s E - e': 2.96 LVOT Max Gradient: 3.95 mm[Hg] LVOT Area (cm2): 0.99 m/s Peak Velocity (LVOT): 0.99 m/s Mean Velocity (LVOT): 0.64 m/s LVOT Diameter 2.36 cm Left Atrium LA Volume Index (2D A2C): 21.77 ml/m2 Left Atrium Systolic Dimension: 2.84 cm Mitral Valve MV E to A Ratio: 0.90 Mitral Valve A-Wave Peak Velocity: 0.66 m/s Mitral Valve E-Wave Peak Velocity: 0.59 m/s Right Ventricle Aorta AO Root Diam: 4.44 cm Ascending Ao Diam: 4.29 cm Aortic Valve AoV Area (Peak Bronson): 3.76 cm2, 3.76 cm2 AoV Area (VTI): 4.04 cm2, 4.04 cm2 Peak Velocity(Antegrade Flow): 1.15 m/s Peak Gradient(Antegrade Flow): 5.32 mm[Hg] Mean Velocity(Antegrade Flow): 0.76 m/s Mean Gradient(Antegrade Flow): 2.69 mm[Hg] Velocity Time Integral: 21.41 cm Tricuspid Valve Pulmonic Valve Mean Gradient: 2.10 mm[Hg] Mean Velocity: 0.67 m/s Peak Velocity: 1.06 m/s, 1.10 m/s Peak Gradient: 4.82 mm[Hg], 4.51 mm[Hg] Right Atrium Dictated by: Jaden Sanz M.D. on 03/27/2024 at 12:52 Approved by: Jaden Sanz M.D. on 03/27/2024 at 12:56
[2024-03-25] MEDS: FUROSEMIDE 40 MG/4 ML VIAL IVP ×2 (09:42→20:01)
[2024-03-25] MEDS: METHYLPREDNISOLONE SOD SUCC PF 40 MG/ML VIAL IVP ×3 (09:42→20:01)
[2024-03-25] MEDS: AZITHROMYCIN 250 MG TABLET 500 MG PO (09:43)
[2024-03-25] MEDS: OMEPRAZOLE 40 MG CAPSULE.DR PO (09:43)
[2024-03-25] MEDS: BUDESONIDE 0.5 MG/2 ML AMPULE NEB IH ×2 (10:14→23:28)
[2024-03-25] MEDS: IPRATROPIUM/ALBUTEROL SULFATE 3 ML AMPUL.NEB IH ×4 (10:14→23:28)
[2024-03-25] MEDS: BUPRENORPHINE HCL/NALOXONE HCL 8-2 MG TABLET SUBL 1 TAB PO (14:12)
--- NOTE | 2024-03-25 14:57 | PM.HP ---
HPI H&P: HPI History of Present Illness Chief complaint: sob Narrative: 58-year-old male with past medical history of COPD, chronic respiratory failure with hypoxia presented to ER with worsening shortness of breath on minimal exertion for past few weeks. He also reports noticing lower extremity edema for past couple of days. He also has associated orthopnea and paroxysmal nocturnal dyspnea. He reports increased cough with a sputum but no fever, chest pain, heart palpitations. Denies abdominal pain, constipation, diarrhea. Patient was admitted to [facility] about a month ago for COPD exacerbation. He was admitted overnight for COPD exacerbation and acute on chronic respiratory failure with hypoxia. Patient reports that he does not feel any better compared to yesterday. He still gets winded on minimal exertion. He has persistent from his baseline. He was 88% on 3 L of oxygen. Opioid HPI Opioid Management Most Recent Pain and Opioid Data: Last Pain Scale 0 05/22/23 15:57 Last Pain Assessment 03/25/24 14:00 Last ORT Total Score 14 03/25/24 01:11 Last ORT Risk Category High Risk 03/25/24 01:11 Review of Systems ROS Status of ROS 10 or more systems reviewed and unremarkable except as noted in history and below PFSH [facility] Medical History (Updated 03/25/24 @ 15:09 by Shaikh Conrad MD) Opioid use disorder in remission ?F11.91 - Opioid use, unspecified, in remission (ICD-10) GERD (gastroesophageal reflux disease) ?K21.9 - Gastro-esophageal reflux disease without esophagitis (ICD-10) Kidney disease ?N28.9 - Disorder of kidney and ureter, unspecified (ICD-10) Liver disease ?K76.9 - Liver disease, unspecified (ICD-10) COPD (chronic obstructive pulmonary disease) ?J44.9 - Chronic obstructive pulmonary disease, unspecified (ICD-10) Emphysema of lung ?J43.9 - Emphysema, unspecified (ICD-10) Family History (Updated 03/25/24 @ 01:59 by Amaris Ku RN) Mother Family history of cancer Other Family history of COPD (chronic obstructive pulmonary disease) Social History (Updated 03/25/24 @ 15:02 by Shaikh Conrad MD) Within the past year, how often did you have a drink containing alcohol: 4 or more times a week Within the past year, how many standard drinks containing alcohol did you have on a typical day: 7 to 9 Within the past year, how often did you have six or more drinks on one occasion: daily or almost daily Total score: 10 Score interpretation: A score of 4 or more indicates drinking is likely to affect patient's safety. Smoking status: Current every day smoker Non-prescribed substance use: former substance user and cannabis (any form) Highest level of school completed/degree received: GED or equivalent Are you now , , , , never or living with a partner: never In a typical week, how many times do you talk on the telephone with family, friends, or neighbors: twice per week How often do you get together with friends or relatives: twice per week How often do you attend protestant or restorationism services: never Do you belong to any clubs or organizations such as protestant groups unions, [employer] or athletic groups, or school groups: no Total score: 1 Score interpretation: A score of less than or equal to 1 indicates the most socially isolated. Little interest or pleasure in doing things: several days Feeling down, depressed, or hopeless: several days Feel stressed/tense/nervous/anxious/difficulty sleeping: to some extent Do you think of yourself as: straight/heterosexual Gender Identity: male Meds Home Medications and Allergies Home Medications ?Medication ?Instructions ?Recorded ?Confirmed ?Type albuterol sulfate 90 mcg/actuation 2 inh inhalation Q4H 05/21/23 05/21/23 History aerosol inhaler budesonide-formoterol HFA 160 2 puff inhalation Q12H 05/21/23 05/21/23 History mcg-4.5 mcg/actuation aerosol inhaler (Symbicort) meloxicam 15 mg tablet 15 mg PO QDAY 05/21/23 05/21/23 History montelukast 10 mg tablet 10 mg PO QDAY 05/21/23 05/21/23 History omeprazole 20 mg capsule,delayed 20 mg PO QDAY 05/21/23 05/21/23 History release levofloxacin 500 mg tablet 500 mg PO DAILY 7 days #7 tabs 05/23/23 Rx prednisone 20 mg tablet 20 mg PO BID 7 days #14 tabs 05/23/23 Rx Allergies Allergy/AdvReac Type Severity Reaction Status Date / Time No Known Drug Allergies Allergy Verified 05/21/23 22:55 Exam Constitutional Vital Signs, click to edit/add: Last Vital Signs Temp 98.0 F 03/25/24 11:00 Pulse 70 03/25/24 11:46 Resp 16 03/25/24 11:00 BP 117/52 03/25/24 11:00 Pulse Ox 88 L 03/25/24 11:00 O2 Del Method Nasal Cannula 03/25/24 10:15 O2 Flow Rate 3 03/25/24 10:15 Documenting provider has reviewed patient's vital signs: yes Common normals: no apparent distress and oriented x3 General appearance: cooperative and ill appearing Nutritional appearance: underweight HENMT Common normals: normocephalic and head/scalp atraumatic Head and scalp: normocephalic and atraumatic Respiratory Common normals: normal respiratory effort and no use of accessory muscles Effort & inspection: able to speak in complete sentences and decreased respiratory effort Auscultation: wheezes Cardio Common normals: regular rate, S1 normal heart sound and S2 normal heart sound Rate: regular rate Heart sounds: S1 normal and S2 normal GI Common normals: Normal to inspection, nondistended, normoactive bowel sounds present, soft to palpation, non-tender and no hepatosplenomegaly Palpation: soft and no hepatosplenomegaly Extremity General: edema (+2) Neuro Common normals: oriented x3, moves all extremities and no focal motor deficits Psych Common normals: mental status grossly normal, denies hallucinations, denies homicidal ideation and denies suicidal ideation Results Labs Labs: Short CBC 03/24/24 03/25/24 Range/Units 21:00 05:58 WBC 5.0 3.6 L (4.0-11.0) 10^3/uL Hgb 13.9 L 13.5 L (14.0-18.0) g/dL Hct 39.5 L 38.9 L (42.0-54.0) % Plt Count 111 L 102 L (150-450) 10^3/uL BMP 03/24/24 03/25/24 21:00 05:58 Sodium 128 L 132 L Potassium 4.0 4.4 Chloride 89 L 94 L Carbon Dioxide 31.4 31.0 BUN 2.0 L 2.0 L Creatinine 0.59 L 0.46 L Glucose 130 H 124 H Calcium 8.8 8.6 Liver Function 03/25/24 Range/Units 05:58 Total Bilirubin 0.7 (0.2-1.0) mg/dL AST 45 H (15-37) U/L ALT 40 (16-63) U/L Alkaline Phosphatase 76 (46-116) U/L Albumin 3.1 L (3.4-5.0) g/dL Assessment and Plan Assessment and Plan (1) Acute exacerbation of chronic obstructive pulmonary disease: Assessment and Plan: Patient presented with acute COPD exacerbation. Has severe COPD at baseline. Currently smoker and has not attempted to quit. Started patient on IV Solu-Medrol, inhaled bronchodilators along with p.o. azithromycin. Discussed smoking cessation with the patient. Nicotine patch while he is inpatient (2) Acute and chronic respiratory failure with hypoxia: Assessment and Plan: Persistent and worsening hypoxia. Uses 2 L at baseline. He is 88% on 3 L currently. Secondary to COPD exacerbation and acute on chronic diastolic heart failure. Wean off oxygen as tolerated. Treat the underlying etiology as discussed separately (3) Acute on chronic diastolic heart failure: Assessment and Plan: Elevated BNP, bilateral lower extremity edema and physical exam consistent with volume overload. No formal diagnosis of congestive heart failure but likely has diastolic heart failure along with possibility of right-sided heart failure. Echocardiogram ordered. Started patient on IV Lasix 40 twice daily. Monitor intake/output daily. Monitor weight daily. (4) Opioid use disorder in remission: Assessment and Plan: Uses Suboxone. Monitor. No history of IV drug abuse. (5) Alcohol abuse: Assessment and Plan: Patient drinks 6 to 8 cans of beers daily. Last drink was prior to arrival. No prior history of alcohol withdrawal. Monitor closely for withdrawal. Discussed and counseled on alcohol cessation (6) Severe protein-calorie malnutrition: Assessment and Plan: Evidence of severe protein caloric malnutrition with BMI of only 17, evidence of muscle wasting, likely due to chronic disease burden of severe COPD/chronic alcoholism. Plan Patient originally admitted as observation, changed to inpatient as patient presented with acute on chronic respiratory failure with hypoxia, COPD exacerbation and acute on chronic diastolic heart failure. He continues to have hypoxia with shortness of breath on exertion and will require continued inpatient treatment with IV steroids and IV diuretic therapy.
[2024-03-25 16:18] LABS: Glucometer 231 mg/dL (74-106)
[2024-03-25] MEDS: INSULIN ASPART 300 UNIT/3 ML PEN SUBQ ×2 (17:34→21:21)
[2024-03-25] MEDS: ENSURE CLEAR 237 ML LIQUID PO ×2 (17:35→21:20)
[2024-03-25 21:07] LABS: Glucometer 160 mg/dL (74-106)
[2024-03-26] VITALS (21 sets, daily range): BP systolic 103–130; BP diastolic 53–76; PULSE 72–95; TEMP 36.7–36.8; O2SAT 81–95
[2024-03-26] MEDS: METHYLPREDNISOLONE SOD SUCC PF 40 MG/ML VIAL IVP ×4 (01:02→18:04)
[2024-03-26] MEDS: IPRATROPIUM/ALBUTEROL SULFATE 3 ML AMPUL.NEB IH ×6 (04:12→23:19)
[2024-03-26] MEDS: OMEPRAZOLE 40 MG CAPSULE.DR PO (06:01)
[2024-03-26] MEDS: ACETAMINOPHEN 325 MG TABLET 650 MG PO (06:03)
[2024-03-26 07:19] LABS: Basophils Percent Auto 0.1 % (0.2-2.0); Hematocrit 40.7 % (42.0-54.0); Hemoglobin 14.3 g/dL (14.0-18.0); Immature Granulocytes Abs Auto 0.04 10^3/uL (0.00-0.03); Immature Granulocytes Pct Auto 0.6 % (0.0-0.5); Lymphocytes Absolute Auto 0.2 10^3/uL (1.2-3.8); Lymphocytes Percent Auto 2.8 % (20.5-60.0); Mean Corpuscular HGB Conc 35.1 g/dL (29.9-35.2); Mean Corpuscular Hemoglobin 37.5 pg (25.9-34.0); Mean Corpuscular Volume 106.8 fL (80.0-94.0); Mean Platelet Volume 10.1 fL (9.5-13.5); Monocytes Absolute Auto 0.2 10^3/uL (0.3-0.8); Monocytes Percent Auto 2.8 % (1.7-12.0); Neutrophils Absolute Auto 6.7 10^3/uL (1.4-6.5); Neutrophils Percent Auto 93.7 % (43.0-75.0); Platelet Count 116 10^3/uL (150-450); Red Blood Count 3.81 10^6/uL (4.70-6.10); Red Cell Distribution Width 13.3 % (11.0-15.0); White Blood Count 7.1 10^3/uL (4.0-11.0)
--- NOTE | 2024-03-26 07:27 | RESP.RT ---
Titrated down to 2L
[2024-03-26 07:46] LABS: Alanine Aminotransferase 34 U/L (16-63); Albumin Globulin Ratio 1.1; Albumin Level 3.2 g/dL (3.4-5.0); Alkaline Phosphatase 79 U/L (46-116); Anion Gap 8.4; Aspartate Amino Transferase 26 U/L (15-37); BUN Creatinine Ratio 21.2; Bilirubin Total 0.7 mg/dL (0.2-1.0); Calcium 9.1 mg/dL (8.5-10.1); Carbon Dioxide 34.5 mmol/L (21.0-32.0); Chloride 92 mmol/L (98-107); Estimated GFR (African America >60 (>=60); Estimated GFR (Non-African Ame >60 (>=60); Globulin 2.8 g/dL; Glucose 145 mg/dL (74-106); Potassium 3.9 mmol/L (3.5-5.1); Sodium 131 mmol/L (136-145)
[2024-03-26] MEDS: FUROSEMIDE 40 MG/4 ML VIAL IVP ×2 (08:43→20:25)
[2024-03-26] MEDS: BUPRENORPHINE HCL/NALOXONE HCL 8-2 MG TABLET SUBL 1 TAB PO (08:43)
[2024-03-26] MEDS: MELOXICAM 7.5 MG TABLET 15 MG PO (08:43)
[2024-03-26] MEDS: AZITHROMYCIN 250 MG TABLET 500 MG PO (08:43)
[2024-03-26] MEDS: MONTELUKAST SODIUM 10 MG TABLET PO (08:43)
[2024-03-26] MEDS: ENSURE CLEAR 237 ML LIQUID PO ×2 (08:44→21:38)
[2024-03-26] MEDS: ENOXAPARIN SODIUM 40 MG/0.4 ML SYRINGE SUBQ (08:44)
--- NOTE | 2024-03-26 09:49 | P.IMPN_ITS ---
Progress Note: A&P Assessment and Plan (1) Acute exacerbation of chronic obstructive pulmonary disease: Assessment and Plan: Acute COPD exacerbation. Continue with systemic steroids and inhaled bronchodilators. Monitor respiratory status closely (2) Acute and chronic respiratory failure with hypoxia: Assessment and Plan: On 3 L oxygen via nasal cannula. More or less at his baseline now. Wean off oxygen as tolerated. Continue with treatment for COPD exacerbation and acute on chronic diastolic heart failure (3) Acute on chronic diastolic heart failure: Assessment and Plan: Echocardiogram is pending. Continue with IV Lasix 40 twice daily. Monitor renal function and serum electrolytes close (4) Opioid use disorder in remission: Assessment and Plan: Currently on Suboxone. (5) Alcohol abuse: Assessment and Plan: Patient appears to be in mild. Start on scheduled dose of oral Ativan. Monitor closely for alcohol withdrawal (6) Severe protein-calorie malnutrition: Assessment and Plan: On Ensure now. Will benefit from outpatient evaluation by nutrition (7) Alcohol withdrawal: Assessment and Plan: Mild alcohol withdrawal. Will start on scheduled dose of p.o. Ativan with IV Ativan as needed for more severe symptoms Qualifiers: Complication of substance-induced condition: uncomplicated Qualified Code(s): F10.930 - Alcohol use, unspecified with withdrawal, uncomplicated Internal Medicine - PN: Subj Subjective Interval history: Seen and examined. No overnight events. Continues to require 3 L of oxygen via nasal cannula. Seems to have mild alcohol withdrawal with CIWA score of 4-5 but he himself does not think he is withdrawing from alcohol. Still experiencing LIMON. Exam Constitutional Vital Signs, click to edit/add: Last Vital Signs Temp 98.0 F 03/26/24 04:00 Pulse 72 03/26/24 08:00 Resp 16 03/26/24 07:25 BP 103/53 03/26/24 04:00 Pulse Ox 94 L 03/26/24 07:25 O2 Del Method Nasal Cannula 03/26/24 07:25 O2 Flow Rate 3 03/26/24 07:25 Documenting provider has reviewed patient's vital signs: yes Common normals: no apparent distress and oriented x3 General appearance: cooperative Nutritional appearance: underweight Respiratory Common normals: normal respiratory effort and no use of accessory muscles Effort & inspection: able to speak in complete sentences and decreased respiratory effort Auscultation: wheezes Cardio Common normals: regular rate, S1 normal heart sound and S2 normal heart sound Rate: regular rate Heart sounds: S1 normal and S2 normal Extremity General: edema (+1 LE Edema) Neuro Common normals: oriented x3, moves all extremities and no focal motor deficits Psych Common normals: mental status grossly normal, denies hallucinations, denies homicidal ideation and denies suicidal ideation Internal Medicine - PN: Obj Da Labs Labs: Laboratory Results - last 24 hr 03/25/24 03/25/24 03/26/24 16:17 20:56 05:48 WBC 7.1 RBC 3.81 L Hgb 14.3 Hct 40.7 L MCV 106.8 H MCH 37.5 H MCHC 35.1 RDW 13.3 Plt Count 116 L MPV 10.1 Neut % (Auto) 93.7 H Lymph % (Auto) 2.8 L [place] % (Auto) 2.8 Eos % (Auto) 0.0 L Baso % (Auto) 0.1 L Neut # (Auto) 6.7 H Lymph # (Auto) 0.2 L [place] # (Auto) 0.2 L Eos # (Auto) 0.0 Baso # (Auto) 0.0 Abs Immat Gran (auto) 0.04 H Imm/Tot Granulo (auto) 0.6 H Sodium 131 L Potassium 3.9 Chloride 92 L Carbon Dioxide 34.5 H Anion Gap 8.4 BUN 11.0 Creatinine 0.52 L Est GFR ( Amer) >60 Est GFR (Non-Af Amer) >60 BUN/Creatinine Ratio 21.2 Glucose 145 H Calcium 9.1 Total Bilirubin 0.7 AST 26 ALT 34 Alkaline Phosphatase 79 Total Protein 6.0 L Albumin 3.2 L Globulin 2.8 Albumin/Globulin Ratio 1.1 POC Glucose 231 H 160 H
[2024-03-26] MEDS: BUDESONIDE 0.5 MG/2 ML AMPULE NEB IH ×2 (11:31→23:21)
--- NOTE | 2024-03-26 11:36 | RESP.RT ---
Pt went to restroom on room air and SpO2 dropped to 85%. Pt placed on 2L NC
[2024-03-26 11:47] LABS: Glucometer 175 mg/dL (74-106)
[2024-03-26] MEDS: INSULIN ASPART 300 UNIT/3 ML PEN SUBQ ×2 (11:59→16:38)
[2024-03-26] MEDS: LORAZEPAM 1 MG TABLET PO ×2 (14:24→21:38)
--- NOTE | 2024-03-26 16:05 | RESP.RT ---
Pt was on room air walking in the room. Placed back on 2L
[2024-03-26 16:31] LABS: Glucometer 169 mg/dL (74-106)
[2024-03-26] MEDS: NICOTINE 21 MG PATCH.TD24 TD (21:40)
[2024-03-26 21:43] LABS: Glucometer 138 mg/dL (74-106)
[2024-03-27] VITALS (14 sets, daily range): BP systolic 106–124; BP diastolic 62–82; PULSE 79–107; TEMP 36.6–36.8; O2SAT 90–96
[2024-03-27] MEDS: METHYLPREDNISOLONE SOD SUCC PF 40 MG/ML VIAL IVP ×3 (00:45→13:12)
[2024-03-27] MEDS: IPRATROPIUM/ALBUTEROL SULFATE 3 ML AMPUL.NEB IH ×3 (03:56→11:15)
[2024-03-27 05:01] LABS: Basophils Percent Auto 0.1 % (0.2-2.0); Eosinophils Percent Auto 0.1 % (0.9-7.0); Hematocrit 41.4 % (42.0-54.0); Hemoglobin 14.4 g/dL (14.0-18.0); Immature Granulocytes Abs Auto 0.07 10^3/uL (0.00-0.03); Lymphocytes Absolute Auto 0.2 10^3/uL (1.2-3.8); Mean Corpuscular HGB Conc 34.8 g/dL (29.9-35.2); Mean Corpuscular Hemoglobin 37.5 pg (25.9-34.0); Mean Corpuscular Volume 107.8 fL (80.0-94.0); Mean Platelet Volume 9.9 fL (9.5-13.5); Monocytes Absolute Auto 0.2 10^3/uL (0.3-0.8); Monocytes Percent Auto 3.5 % (1.7-12.0); Neutrophils Absolute Auto 6.4 10^3/uL (1.4-6.5); Neutrophils Percent Auto 92.3 % (43.0-75.0); Platelet Count 120 10^3/uL (150-450); Red Blood Count 3.84 10^6/uL (4.70-6.10); Red Cell Distribution Width 13.7 % (11.0-15.0)
[2024-03-27] MEDS: OMEPRAZOLE 40 MG CAPSULE.DR PO (05:43)
[2024-03-27] MEDS: LORAZEPAM 1 MG TABLET PO ×2 (05:43→13:13)
[2024-03-27 06:21] LABS: Alanine Aminotransferase 30 U/L (16-63); Albumin Globulin Ratio 1.1; Albumin Level 3.2 g/dL (3.4-5.0); Alkaline Phosphatase 88 U/L (46-116); Anion Gap 5.5; Aspartate Amino Transferase 21 U/L (15-37); BUN Creatinine Ratio 21.9; Bilirubin Total 0.5 mg/dL (0.2-1.0); Calcium 9.1 mg/dL (8.5-10.1); Carbon Dioxide 38.1 mmol/L (21.0-32.0); Chloride 91 mmol/L (98-107); Estimated GFR (African America >60 (>=60); Estimated GFR (Non-African Ame >60 (>=60); Globulin 2.8 g/dL; Glucose 154 mg/dL (74-106); Potassium 3.6 mmol/L (3.5-5.1); Sodium 131 mmol/L (136-145)
[2024-03-27 07:32] LABS: Glucometer 141 mg/dL (74-106)
[2024-03-27] MEDS: ENSURE CLEAR 237 ML LIQUID PO (08:34)
[2024-03-27] MEDS: MELOXICAM 7.5 MG TABLET 15 MG PO (08:34)
[2024-03-27] MEDS: AZITHROMYCIN 250 MG TABLET 500 MG PO (08:34)
[2024-03-27] MEDS: MONTELUKAST SODIUM 10 MG TABLET PO (08:34)
[2024-03-27] MEDS: FUROSEMIDE 40 MG/4 ML VIAL IVP (08:34)
[2024-03-27] MEDS: BUPRENORPHINE HCL/NALOXONE HCL 8-2 MG TABLET SUBL 1 TAB PO (08:34)
[2024-03-27] MEDS: ENOXAPARIN SODIUM 40 MG/0.4 ML SYRINGE SUBQ (08:35)
[2024-03-27] MEDS: BUDESONIDE 0.5 MG/2 ML AMPULE NEB IH (11:15)
[2024-03-27 11:22] LABS: Glucometer 202 mg/dL (74-106)
--- NOTE | 2024-03-27 11:22 | CM.NOTE ---
Rounds made with Dr. Martines, discussed with pt about having echo today and possible discharge to home this afternoon. Pt has home oxygen and denies other concerns. Pt will f/u with family doctor.
[2024-03-27] MEDS: INSULIN ASPART 300 UNIT/3 ML PEN SUBQ (11:35)
--- NOTE | 2024-03-27 14:29 | PM.DS1 ---
DS: Providers Provider Date of admission: 03/25/24 01:00 Primary care physician: Non-Staff PhysicianMD Admitting clinician: Shaikh Conrad Attending physician on admission: Shaikh Conrad Attending physician on discharge: Shaikh Conrad Discharging clinician: Shaikh Conrad Anticipated date of discharge: 03/27/24 DS: Diagnosis Discharge Diagnosis (1) Acute exacerbation of chronic obstructive pulmonary disease: Assessment and plan: Doing better. On 3 L oxygen. More or less at baseline. Stable for discharge on p.o. prednisone. (2) Acute and chronic respiratory failure with hypoxia: Assessment and plan: More or less back to his baseline. Stable for discharge. (3) Acute on chronic diastolic heart failure: Assessment and plan: Required IV diuresis. More or less euvolemic. Will discharge on p.o. Lasix 20 mg once daily (4) Opioid use disorder in remission: Assessment and plan: On Suboxone. Follow-up as out (5) Alcohol abuse: Assessment and plan: Had mild alcohol withdrawal during the course of admission. Discussed alcohol cessation and counseled patient on adverse effects of alcohol abuse. (6) Severe protein-calorie malnutrition: Assessment and plan: Will benefit from outpatient evaluation by nutrition. (7) Alcohol withdrawal: Assessment and plan: Does not appear to be in alcohol withdrawal now. Needs outpatient follow-up for alcohol rehab Qualifiers: Complication of substance-induced condition: uncomplicated Qualified Code(s): F10.930 - Alcohol use, unspecified with withdrawal, uncomplicated DS: Summary Hospital Course Hospital Course: 58-year-old male presented with worsening shortness of breath, cough, lower extremity edema and was admitted for acute on chronic respiratory failure with hypoxia due to COPD exacerbation and acute on chronic diastolic heart failure. Patient was treated with IV steroids, inhaled bronchodilators along with IV Lasix 40 twice daily. He was closely monitored during the course of admission and showed gradual clinical improvement.. He is doing well today and reports mild dyspnea on exertion that likely will be his new baseline. Echocardiogram did not show any acute/significant cardiac structural abnormalities. He is feeling subjectively better and is medically stable for discharge on oral Lasix and p.o. prednisone. Status at Discharge Functional status at discharge: independent ambulation Overall status at discharge: patient is back to baseline Time Spent with Patient Time attestation: Total time spent providing and/or coordinating discharge services: Time spent: greater than 30 minutes Exam Constitutional Vital Signs, click to edit/add: Last Vital Signs Temp 98.2 F 03/27/24 13:17 Pulse 91 H 03/27/24 14:00 Resp 18 03/27/24 13:17 BP 106/62 03/27/24 13:17 Pulse Ox 91 L 03/27/24 13:17 O2 Del Method Nasal Cannula 03/27/24 13:17 O2 Flow Rate 2 03/27/24 11:16 Documenting provider has reviewed patient's vital signs: yes Common normals: no apparent distress and oriented x3 General appearance: cooperative Nutritional appearance: underweight Respiratory Common normals: normal respiratory effort and no use of accessory muscles Effort & inspection: able to speak in complete sentences Cardio Common normals: regular rate, S1 normal heart sound and S2 normal heart sound Rate: regular rate Heart sounds: S1 normal and S2 normal Extremity Common normals: no clubbing, cyanosis or edema Neuro Common normals: oriented x3, moves all extremities and no focal motor deficits Psych Common normals: mental status grossly normal, denies hallucinations, denies homicidal ideation and denies suicidal ideation DS: Data Data Completed and Pending Labs on day of discharge: Labs from last 24 hours 03/27/24 03/27/24 03/27/24 11:22 07:31 05:55 WBC RBC Hgb Hct MCV MCH MCHC RDW Plt Count MPV Neut % (Auto) Lymph % (Auto) [place] % (Auto) Eos % (Auto) Baso % (Auto) Neut # (Auto) Lymph # (Auto) [place] # (Auto) Eos # (Auto) Baso # (Auto) Abs Immat Gran (auto) Imm/Tot Granulo (auto) Sodium 131 L Potassium 3.6 Chloride 91 L Carbon Dioxide 38.1 H Anion Gap 5.5 BUN 14.0 Creatinine 0.64 L Est GFR ( Amer) >60 Est GFR (Non-Af Amer) >60 BUN/Creatinine Ratio 21.9 Glucose 154 H Calcium 9.1 Total Bilirubin 0.5 AST 21 ALT 30 Alkaline Phosphatase 88 NT-Pro-B Natriuret Pep Total Protein 6.0 L Albumin 3.2 L Globulin 2.8 Albumin/Globulin Ratio 1.1 POC Glucose 202 H 141 H 03/27/24 03/26/24 03/26/24 04:24 21:37 16:30 WBC 7.0 RBC 3.84 L Hgb 14.4 Hct 41.4 L MCV 107.8 H MCH 37.5 H MCHC 34.8 RDW 13.7 Plt Count 120 L MPV 9.9 Neut % (Auto) 92.3 H Lymph % (Auto) 3.0 L [place] % (Auto) 3.5 Eos % (Auto) 0.1 L Baso % (Auto) 0.1 L Neut # (Auto) 6.4 Lymph # (Auto) 0.2 L [place] # (Auto) 0.2 L Eos # (Auto) 0.0 Baso # (Auto) 0.0 Abs Immat Gran (auto) 0.07 H Imm/Tot Granulo (auto) 1.0 H Sodium Potassium Chloride Carbon Dioxide Anion Gap BUN Creatinine Est GFR ( Amer) Est GFR (Non-Af Amer) BUN/Creatinine Ratio Glucose Calcium Total Bilirubin AST ALT Alkaline Phosphatase NT-Pro-B Natriuret Pep 501.0 Total Protein Albumin Globulin Albumin/Globulin Ratio POC Glucose 138 H 169 H Discharge Plan Discharge Disposition: Home, Self-Care Condition: Fair Discharge Medications: New metoprolol succinate [Toprol XL] 25 mg tablet extended release 24 hr 25 mg PO DAILY Qty: 30 0RF furosemide [Lasix] 20 mg tablet 20 mg PO DAILY Qty: 30 0RF prednisone 20 mg tablet 20 mg PO DAILY Qty: 10 0RF albuterol sulfate [Ventolin HFA] 90 mcg/actuation HFA aerosol inhaler 2 inh inhalation Q4H PRN (Reason: shortness of breath or wheezing) Qty: 6.7 0RF Continued budesonide-formoterol [Symbicort] 160-4.5 mcg/actuation HFA aerosol inhaler 2 puff INHALATION Q12H albuterol sulfate 90 mcg/actuation HFA aerosol inhaler 2 inh INHALATION Q4H montelukast 10 mg tablet 10 mg PO QDAY Activity: increase activity as tolerated Diet: advance to your usual diet Print Language: Citizen [place] Forms: Portal Instructions Follow Up Appointments: f/u with pcp in one week
--- NOTE | 2024-03-28 14:45 | CM.DCFOLLOWU ---
Wrong number for contact
== END 2024-03-27 15:52 | disposition home or self-care (01) | DRG 133 ==
LOC: ER 23:39 → MS 03-25 01:05
PROVIDERS: Registered Nurse; Admitting Provider Internal Medicine; Emergency Provider Emergency Medicine; Visit Provider Internal Medicine
DX: J96.21 Acute and chronic respiratory failure with hypoxia (principal); J43.9 Emphysema, unspecified; I50.33 Acute on chronic diastolic (congestive) heart failure; F11.91 Opioid use, unspecified, in remission; Z79.899 Other long term (current) drug therapy; E43 Unspecified severe protein-calorie malnutrition; Z68.1 Body mass index [BMI] 19.9 or less, adult; Z99.81 Dependence on supplemental oxygen; F17.200 Nicotine dependence, unspecified, uncomplicated; F10.139 Alcohol abuse with withdrawal, unspecified
CPT/HCPCS: 36415; 71045; 80048; 80053; 82948; 83735; 83880; 84100; 84484; 85007; 85025; 85027; 85610; 85730; 87040; 87811; 93005; 93306; 93970; 94640; 94667; 94668; 94761; 96365; 96366; 96372; 96375; 96376; 99285; 99406; J0574; J1650; J1940; J2919

== ENCOUNTER 2024-09-25 17:38 | Inpatient (IN) | payer MEDICAID, SELFPAY ==
[2024-09-25] VITALS (18 sets, daily range): BP systolic 82–133; BP diastolic 55–84; PULSE 82–110; RESP 16; TEMP 36.8; O2SAT 88–100; BMI 16.3
--- NOTE | 2024-09-25 17:48 | ECG_ITS ---
[facility] Test Date: 2024-09-25 Pat Name: VINAY SCHWARZ Department: Room: - Gender: Male Nuclear Medicine Specialist: : [id number] Requested By: Order Number: [id number] Reading MD: TRI ARANDA Measurements Intervals [place] Rate: 90 P: 90 ID: [id number] QRS: 106 QRSD: 92 T: 73 QT: 346 QTc: 393 Interpretive Statements 1100 Sinus rhythm 7100 Abnormal right axis deviation 8003 Consistent with pulmonary disease 9150 abnormal ECG Electronically Signed On 09-26-2024 6:55:10 EST by TRI ARANDA
--- NOTE | 2024-09-25 17:52 | ED.SOB1 ---
HPI - SOB/Dyspnea General Chief Complaint: Shortness of Breath/Dyspnea Stated Complaint: SOB-COPD Time Seen by Provider: 09/25/24 17:47 Source: patient and EMR Mode of arrival: ambulance History of Present Illness HPI Narrative: Patient is a 59-year-old male with a history of COPD who presents to the emergency department by ambulance for not feeling well for the last several days. EMS reports that they were called out for dizziness and shortness of breath. Patient wears oxygen by nasal cannula at 3 L chronically. He was found to be hypoxic at 75%, EMS reports that his oxygen is demand and not continuous. Patient denies chest pain. He has not had any objective fevers, hemoptysis. His legs are chronically swollen. He has not had any vomiting or diarrhea. He smokes a pack of cigarettes daily. No sick contacts in the home. No medications prior to arrival, EMS gave breathing treatments with improvement of oxygen saturation. Related Data Home Medications ?Medication ?Instructions ?Recorded ?Confirmed albuterol sulfate 90 mcg/actuation 2 inh inhalation Q4H 05/21/23 09/25/24 aerosol inhaler budesonide-formoterol HFA 160 2 puff inhalation Q12H 05/21/23 09/25/24 mcg-4.5 mcg/actuation aerosol inhaler (Symbicort) montelukast 10 mg tablet 10 mg PO QDAY 05/21/23 09/25/24 albuterol sulfate 2.5 mg/3 mL mg 09/25/24 (0.083 %) solution for nebulization Previous Rx's ?Medication ?Instructions ?Recorded albuterol sulfate 90 mcg/actuation 2 inh inhalation Q4H PRN shortness 03/27/24 aerosol inhaler (Ventolin HFA) of breath or wheezing #6.7 grams furosemide 20 mg tablet (Lasix) 20 mg PO DAILY #30 tabs 03/27/24 metoprolol succinate 25 mg 25 mg PO DAILY #30 tabs 03/27/24 tablet,extended release 24 hr (Toprol XL) Allergies Allergy/AdvReac Type Severity Reaction Status Date / Time No Known Drug Allergies Allergy Verified 05/21/23 22:55 Review of Systems ROS Constitutional Denies: fever or chills Ears, nose, mouth, and throat Denies: throat pain or nasal congestion Cardiovascular Denies: chest pain Respiratory Reports: shortness of breath, cough, wheezing and chest congestion Gastrointestinal Denies: abdominal pain, nausea or vomiting Integumentary/Breast Denies: rash Neurological Denies: headache, numbness in extremities or weakness in extremities Hematologic/Lymphatic Denies: easy bruising or easy bleeding PFSH [facility] Medical History (Updated 09/25/24 @ 21:53 by MARIANGEL Wynn) Severe protein-calorie malnutrition ?E43 - Unspecified severe protein-calorie malnutrition (ICD-10) Acute on chronic diastolic heart failure ?I50.33 - Acute on chronic diastolic (congestive) heart failure (ICD-10) Acute and chronic respiratory failure with hypoxia ?J96.21 - Acute and chronic respiratory failure with hypoxia (ICD-10) Acute exacerbation of chronic obstructive pulmonary disease ?J44.1 - Chronic obstructive pulmonary disease with (acute) exacerbation (ICD-10) Alcohol abuse ?F10.10 - Alcohol abuse, uncomplicated (ICD-10) Opioid use disorder in remission ?F11.91 - Opioid use, unspecified, in remission (ICD-10) GERD (gastroesophageal reflux disease) ?K21.9 - Gastro-esophageal reflux disease without esophagitis (ICD-10) Kidney disease ?N28.9 - Disorder of kidney and ureter, unspecified (ICD-10) Liver disease ?K76.9 - Liver disease, unspecified (ICD-10) COPD (chronic obstructive pulmonary disease) ?J44.9 - Chronic obstructive pulmonary disease, unspecified (ICD-10) Emphysema of lung ?J43.9 - Emphysema, unspecified (ICD-10) Family History (Updated 03/25/24 @ 01:59 by Amaris Ku RN) Mother Family history of cancer Other Family history of COPD (chronic obstructive pulmonary disease) Social History Within the past year, how often did you have a drink containing alcohol: 4 or more times a week Within the past year, how many standard drinks containing alcohol did you have on a typical day: 7 to 9 Within the past year, how often did you have six or more drinks on one occasion: daily or almost daily Total score: 10 Score interpretation: A score of 4 or more indicates drinking is likely to affect patient's safety. Smoking status: Current every day smoker Non-prescribed substance use: former substance user and cannabis (any form) Highest level of school completed/degree received: GED or equivalent Are you now , , , , never or living with a partner: never In a typical week, how many times do you talk on the telephone with family, friends, or neighbors: twice per week How often do you get together with friends or relatives: twice per week How often do you attend sabianist or advent services: never Do you belong to any clubs or organizations such as sabianist groups unions, fraternal or athletic groups, or school groups: no Total score: 1 Score interpretation: A score of less than or equal to 1 indicates the most socially isolated. Little interest or pleasure in doing things: not at all Feeling down, depressed, or hopeless: not at all Feel stressed/tense/nervous/anxious/difficulty sleeping: to some extent Do you think of yourself as: straight/heterosexual Gender Identity: male Exam Narrative Exam Narrative: Gen.: Awake, alert, in no distress Head: Normocephalic, atraumatic ENT: Moist mucous membranes Respiratory: No respiratory distress, diminished lung sounds globally Cardio: Regular rate and rhythm Gastrointestinal: Abdomen is soft, nondistended and nontender to palpation Extremities: Moves extremities equally, 2+ pitting edema to the bilateral lower extremities with no erythema or drainage Psych: Normal mood and affect Neuro: No focal neuro deficit Skin: Warm, dry, intact Constitutional Vital Signs, click to edit/add: Last Vital Signs Temp 98.2 F 09/25/24 17:45 Pulse 110 H 09/25/24 21:03 Resp 18 09/25/24 21:03 BP 88/58 L 09/25/24 21:30 Pulse Ox 96 09/25/24 21:03 O2 Del Method Nasal Cannula 09/25/24 18:43 O2 Flow Rate 6 09/25/24 20:10 FiO2 50 09/25/24 21:00 Course Vital Signs Vital signs: Vital Signs Temperature 98.2 F 09/25/24 17:45 Pulse Rate 94 H 09/25/24 17:45 Respiratory Rate 22 H 09/25/24 17:45 Blood Pressure 124/79 09/25/24 17:45 Pulse Oximetry 88 L 09/25/24 17:45 Oxygen Delivery Method Room Air 09/25/24 17:45 Temperature 98.2 F 09/25/24 17:45 Pulse Rate 110 H 09/25/24 21:03 Respiratory Rate 18 09/25/24 21:03 Blood Pressure 88/58 L 09/25/24 21:30 Pulse Oximetry 96 09/25/24 21:03 Oxygen Delivery Method Nasal Cannula 09/25/24 18:43 Oxygen Delivery Flow Rate 6 09/25/24 20:10 Fraction of Inspired Oxygen 50 09/25/24 21:00 MDM - SOB/Dyspnea MDM Narrative Medical decision making narrative: Patient was placed on BiPAP on arrival, his venous pCO2 is 76. Laboratory studies reviewed and noted showing normal white blood cell count, minimally elevated lactic acid with normal troponin and BNP. No EKG changes or complaints of chest pain in the ER. He was treated with IV fluids, blood pressure remained soft with tachycardia has improved. He had improvement of his breathing on BiPAP. CT angio of the chest was performed for elevated D-dimer and patient was found to have significant emphysema with suspicious pulmonary nodules for neoplasm and subacute multiple rib fractures on both sides. On arrival he denied any recent falls. He had no request for pain medication. He did state that the BiPAP made him feel cold so he did take the mask off several times, he was strongly encouraged to keep the mask on and was given Ativan to help him relax which did make him very sleepy. Blood cultures are pending, respiratory swabs are negative. Patient was reevaluated by attending physician with his sister at bedside and discussed the patient's CODE STATUS as there was a question of his CODE STATUS on arrival. Patient states that he does not want any intubation or resuscitation and after lengthy discussion with attending physician he is made a DNR comfort care. He is admitted to ICU for further management. He was given IV magnesium, Solu-Medrol, breathing treatment, azithromycin and Rocephin for antibiotic coverage. SHARED APC VISIT, PHYSICIAN ATTESTATION: [id number] I performed a substantive part of the MDM during the patient?s E/M visit. I personally evaluated and examined the patient. I personally made or approved the documented management plan and acknowledge its risk of complications. Medical Records Attestation: I reviewed the patient's medical records. Lab Data Attestation: I reviewed the patient's lab results. Labs: Lab Results 09/25/24 09/25/24 09/25/24 Range/Units 18:00 18:09 18:10 WBC 6.3 (4.0-11.0) 10^3/uL RBC 4.27 L (4.70-6.10) 10^6/uL Hgb 14.6 (14.0-18.0) g/dL Hct 43.4 (42.0-54.0) % MCV 101.6 H (80.0-94.0) fL MCH 34.2 H (25.9-34.0) pg MCHC 33.6 (29.9-35.2) g/dL RDW 14.3 (11.0-15.0) % Plt Count 163 (150-450) 10^3/uL MPV 9.0 L (9.5-13.5) fL Neut % (Auto) 53.3 (43.0-75.0) % Lymph % (Auto) 38.0 (20.5-60.0) % [place] % (Auto) 6.0 (1.7-12.0) % Eos % (Auto) 0.3 L (0.9-7.0) % Baso % (Auto) 0.8 (0.2-2.0) % Neut # (Auto) 3.4 (1.4-6.5) 10^3/uL Lymph # (Auto) 2.4 (1.2-3.8) 10^3/uL [place] # (Auto) 0.4 (0.3-0.8) 10^3/uL Eos # (Auto) 0.0 (0.0-0.7) 10^3/uL Baso # (Auto) 0.1 (0.0-0.1) 10^3/uL Abs Immat Gran (auto) 0.10 H (0.00-0.03) 10^3/uL Imm/Tot Granulo (auto) 1.6 H (0.0-0.5) % PT 11.0 (9.0-11.6) sec INR 1.04 D-Dimer 4.53 H* (<=0.59) mg/L FEU VBG pH 7.388 (7.330-7.430) VBG pCO2 76.2 H* (40.0-52.0) mmHg Sodium 139 (136-145) mmol/L Potassium 4.3 (3.5-5.1) mmol/L Chloride 96 L (98-107) mmol/L Carbon Dioxide 42.5 H (21.0-32.0) mmol/L Anion Gap 4.8 BUN 6.0 L (7.0-18.0) mg/dL Creatinine 0.53 L (0.70-1.30) mg/dL Est GFR ( Amer) >60 (>=60 mL/min/1.73m^2) Est GFR (Non-Af Amer) >60 (>=60 mL/min/1.73m^2) BUN/Creatinine Ratio 11.3 Glucose 86 (74-106) mg/dL Lactate 2.1 H (0.4-2.0) mmol/L Calcium 9.3 (8.5-10.1) mg/dL Magnesium 1.5 L (1.8-2.4) mg/dL Total Bilirubin 1.0 (0.2-1.0) mg/dL AST 36 (15-37) U/L ALT 20 (16-63) U/L Alkaline Phosphatase 117 H (46-116) U/L Troponin I High Sens 9.0 (4.0-76.1) pg/mL NT-Pro-B Natriuret Pep 92.0 (<=900.0) pg/mL Total Protein 6.8 (6.4-8.2) g/dL Albumin 3.1 L (3.4-5.0) g/dL Globulin 3.7 g/dL Albumin/Globulin Ratio 0.8 Influenza Type A Ag Negative Influenza Type B Ag Negative SARS-CoV-2 Ag (CV2AG) Negative (NEGATIVE) 09/25/24 Range/Units 21:05 WBC (4.0-11.0) 10^3/uL RBC (4.70-6.10) 10^6/uL Hgb (14.0-18.0) g/dL Hct (42.0-54.0) % MCV (80.0-94.0) fL MCH (25.9-34.0) pg MCHC (29.9-35.2) g/dL RDW (11.0-15.0) % Plt Count (150-450) 10^3/uL MPV (9.5-13.5) fL Neut % (Auto) (43.0-75.0) % Lymph % (Auto) (20.5-60.0) % [place] % (Auto) (1.7-12.0) % Eos % (Auto) (0.9-7.0) % Baso % (Auto) (0.2-2.0) % Neut # (Auto) (1.4-6.5) 10^3/uL Lymph # (Auto) (1.2-3.8) 10^3/uL [place] # (Auto) (0.3-0.8) 10^3/uL Eos # (Auto) (0.0-0.7) 10^3/uL Baso # (Auto) (0.0-0.1) 10^3/uL Abs Immat Gran (auto) (0.00-0.03) 10^3/uL Imm/Tot Granulo (auto) (0.0-0.5) % PT (9.0-11.6) sec INR D-Dimer (<=0.59) mg/L FEU VBG pH (7.330-7.430) VBG pCO2 (40.0-52.0) mmHg Sodium (136-145) mmol/L Potassium (3.5-5.1) mmol/L Chloride (98-107) mmol/L Carbon Dioxide (21.0-32.0) mmol/L Anion Gap BUN (7.0-18.0) mg/dL Creatinine (0.70-1.30) mg/dL Est GFR ( Amer) (>=60 mL/min/1.73m^2) Est GFR (Non-Af Amer) (>=60 mL/min/1.73m^2) BUN/Creatinine Ratio Glucose (74-106) mg/dL Lactate 1.7 (0.4-2.0) mmol/L Calcium (8.5-10.1) mg/dL Magnesium (1.8-2.4) mg/dL Total Bilirubin (0.2-1.0) mg/dL AST (15-37) U/L ALT (16-63) U/L Alkaline Phosphatase (46-116) U/L Troponin I High Sens (4.0-76.1) pg/mL NT-Pro-B Natriuret Pep (<=900.0) pg/mL Total Protein (6.4-8.2) g/dL Albumin (3.4-5.0) g/dL Globulin g/dL Albumin/Globulin Ratio Influenza Type A Ag Influenza Type B Ag SARS-CoV-2 Ag (CV2AG) (NEGATIVE) Imaging Data CT scan - chest: Attestation: I have reviewed the pertinent imaging results. Radiologist's impression: ITS Impressions Chest CTA 09/25/24 19:15 IMPRESSION: 1. No evidence of pulmonary embolus. 2. Severe bullous emphysematous changes in the lungs with 2 new suspicious pulmonary nodules which have developed in the right lower lobe as discussed above. Based on the morphologic features, these are concerning for neoplastic nodules. In the absence of soft tissue sampling, short interval follow-up chest CT can be performed in no more than 3 months. One of the nodules meet size criteria for PET/CT which could also be utilized for further evaluation. 3. Subacute healing fractures in the right first through seventh ribs and left second through sixth ribs. Electronically authenticated by: PRASHANT KELLER Date: 09/25/2024 21:32 ECG Data Attestation: I personally reviewed and interpreted this ECG as follows: (Normal sinus rhythm at a rate of 90, no acute ST elevation, no ectopy. EKG reviewed by attending physician) Discharge Plan Discharge Chief Complaint: Shortness of Breath/Dyspnea Clinical Impression: Shortness of breath, Acute respiratory distress, Hypoxia, COPD exacerbation, Multiple pulmonary nodules, Multiple fractures of ribs Patient Disposition: Admitted As Inpatient Time of Disposition Decision: 21:47 Condition: Fair
[2024-09-25] MEDS: 0.9 % SODIUM CHLORIDE 1,000 ML 999 ML IV (18:21)
[2024-09-25 18:27] LABS: Basophils Absolute Auto 0.1 10^3/uL (0.0-0.1); Basophils Percent Auto 0.8 % (0.2-2.0); Eosinophils Percent Auto 0.3 % (0.9-7.0); Hematocrit 43.4 % (42.0-54.0); Hemoglobin 14.6 g/dL (14.0-18.0); Immature Granulocytes Pct Auto 1.6 % (0.0-0.5); Lymphocytes Absolute Auto 2.4 10^3/uL (1.2-3.8); Mean Corpuscular HGB Conc 33.6 g/dL (29.9-35.2); Mean Corpuscular Hemoglobin 34.2 pg (25.9-34.0); Mean Corpuscular Volume 101.6 fL (80.0-94.0); Monocytes Absolute Auto 0.4 10^3/uL (0.3-0.8); Neutrophils Absolute Auto 3.4 10^3/uL (1.4-6.5); Neutrophils Percent Auto 53.3 % (43.0-75.0); Platelet Count 163 10^3/uL (150-450); Red Blood Count 4.27 10^6/uL (4.70-6.10); Red Cell Distribution Width 14.3 % (11.0-15.0); White Blood Count 6.3 10^3/uL (4.0-11.0)
[2024-09-25 18:31] LABS: Influenza Virus A Antigen Negative; Influenza Virus B Antigen Negative; Internal Control Within Normal Limits; SARS-CoV-2 Ag NEGATIVE (NEGATIVE)
[2024-09-25 18:32] LABS: pH VBG 7.388 (7.330-7.430)
[2024-09-25] MEDS: ALBUTEROL SULFATE 2.5 MG/3 ML VIAL NEB IH ×2 (18:32→23:20)
[2024-09-25 18:33] LABS: PCO2 VBG 76.2 mmHg (40.0-52.0)
[2024-09-25 18:46] LABS: Alanine Aminotransferase 20 U/L (16-63); Albumin Globulin Ratio 0.8; Albumin Level 3.1 g/dL (3.4-5.0); Alkaline Phosphatase 117 U/L (46-116); Anion Gap 4.8; Aspartate Amino Transferase 36 U/L (15-37); BUN Creatinine Ratio 11.3; Calcium 9.3 mg/dL (8.5-10.1); Carbon Dioxide 42.5 mmol/L (21.0-32.0); Chloride 96 mmol/L (98-107); Estimated GFR (African America >60 (>=60 mL/min/1.73m^2); Estimated GFR (Non-African Ame >60 (>=60 mL/min/1.73m^2); Globulin 3.7 g/dL; Glucose 86 mg/dL (74-106); Magnesium 1.5 mg/dL (1.8-2.4); Potassium 4.3 mmol/L (3.5-5.1); Sodium 139 mmol/L (136-145); Total Protein 6.8 g/dL (6.4-8.2)
[2024-09-25 18:51] LABS: Lactate/Lactic Acid 2.1 mmol/L (0.4-2.0)
[2024-09-25 19:06] LABS: INR 1.04
[2024-09-25 19:08] LABS: D Dimer 4.53 mg/L FEU (<=0.59)
--- NOTE | 2024-09-25 19:08 | PC.NURSE ---
critical lab of 4.53 D-dimer reported to this RN by lab at this time. Paola AUGUST made aware.
--- NOTE | 2024-09-25 19:15 | CT_ITS ---
[address] [address] Patient Name: VINAY SCHWARZ MRN: [facility]:[id number] date: 1965 Sex: M Assigned Patient Location: ER Current Patient Location: ER Accession/Order Number: [id number] Exam Date: 09/25/2024 19:45 Report Date: 09/25/2024 21:32 At the request of: CARMEN BECKMAN Procedure: CT angio chest EXAMINATION:CT angio chest INDICATION:elevated d dimer COMPARISON:Chest CT dated 05/22/2023 TECHNIQUE:Thin section transaxial slices were acquired through the chest with intravenous contrast per PE protocol. Coronal and sagittal reconstructed images were reviewed. FINDINGS: PULMONARY ARTERIES: There is very good opacification of the pulmonary vasculature. No suspicious pulmonary arterial filling defects are identified to suggest pulmonary embolus. LUNGS: Severe emphysematous changes and chronic interstitial scarring are present in the lungs. Bullous emphysema is present in the right greater than left upper lobes. There are 2 new suspicious pulmonary nodules that have developed in the right lower lobe. There is a spiculated nodule in the right lower lobe on image 73 of series 5 measuring 1.9 x 1.1 cm. There is another irregular nodule in the medial right lower lobe on series 5 image 62 measuring 0.9 x 0.5 cm. Morphologic features are concerning for neoplastic nodules. Further evaluation is warranted. There is airspace density in the right middle lobe medially favoring atelectasis. There is minimal curvilinear atelectasis in left greater than right lower lobes and the lingula. No large consolidative infiltrates are present. PLEURAL CAVITY: No pleural effusion. MEDIASTINUM: There is mucus in the trachea with extension into the left mainstem bronchus and alia. HEART: Moderate coronary artery calcifications are present.There is no evidence of right heart strain. VASCULAR:No aneurysm or dissection of the thoracic aorta. LYMPH NODES:No suspicious lymphadenopathy. CHEST WALL/AXILLA: Chest wall and axilla are unremarkable. BONES: Multilevel endplate degenerative disc disease is present throughout the thoracic spine. There are subacute healing fractures involving the right first through seventh ribs and left second through sixth ribs. VISUALIZED UPPER ABDOMEN: Upper abdominal structures are unremarkable. CT/CT angio chest IMPRESSION: 1. No evidence of pulmonary embolus. 2. Severe bullous emphysematous changes in the lungs with 2 new suspicious pulmonary nodules which have developed in the right lower lobe as discussed above. Based on the morphologic features, these are concerning for neoplastic nodules. In the absence of soft tissue sampling, short interval follow-up chest CT can be performed in no more than 3 months. One of the nodules meet size criteria for PET/CT which could also be utilized for further evaluation. 3. Subacute healing fractures in the right first through seventh ribs and left second through sixth ribs. Electronically authenticated by: PRASHANT KELLER Date: 09/25/2024 21:32
[2024-09-25] MEDS: MAGNESIUM SULFATE IN WATER 2 GM/50 ML PREMIX IV (20:06)
[2024-09-25] MEDS: LORAZEPAM 2 MG/ML VIAL 1 MG IV (20:07)
[2024-09-25] MEDS: 0.9 % SODIUM CHLORIDE 1,000 ML 1000 ML IV (21:17)
[2024-09-25 21:27] LABS: Lactate/Lactic Acid 1.7 mmol/L (0.4-2.0)
[2024-09-25] MEDS: CEFTRIAXONE 1,000 MG in 0.9 % SODIUM CHLORIDE 50 ML 100 MG IV (21:55)
[2024-09-25] MEDS: AZITHROMYCIN 500 MG in 0.9 % SODIUM CHLORIDE 250 ML 250 MG IV (22:37)
--- NOTE | 2024-09-25 23:39 | RESP.RT ---
Titrated to 40%
--- NOTE | 2024-09-25 23:40 | RESP.RT ---
Titrated to 40%
[2024-09-25] MEDS: 0.9 % SODIUM CHLORIDE 1,000 ML 125 ML IV (23:42)
[2024-09-26] VITALS (27 sets, daily range): BP systolic 122–147; BP diastolic 72–89; PULSE 0–121; RESP 16; TEMP 36.6–37; O2SAT 81–98; BMI 18.2
[2024-09-26] MEDS: METHYLPREDNISOLONE SOD SUCC PF 40 MG/ML VIAL IVP ×3 (00:11→17:33)
[2024-09-26] MEDS: ALBUTEROL SULFATE 2.5 MG/3 ML VIAL NEB IH ×3 (03:35→11:56)
[2024-09-26] MEDS: LORAZEPAM 2 MG/ML VIAL 0.5 MG IV (04:35)
--- NOTE | 2024-09-26 04:43 | RESP.RT ---
Pt was on 6L nasal cannula and Sp02 was 76%-77%. Placed pt back on BIPAP 26/03 and had to increase Fi02 up to 60% due to Sp02 ranging from 86%-88%. Previously Fi02 was set at 40% on BIPAP.
[2024-09-26 04:54] LABS: PCO2 VBG 56.8 mmHg (40.0-52.0); pH VBG 7.411 (7.330-7.430)
[2024-09-26 04:58] LABS: Hemoglobin 12.5 g/dL (14.0-18.0); Mean Corpuscular HGB Conc 33.8 g/dL (29.9-35.2); Mean Corpuscular Hemoglobin 34.2 pg (25.9-34.0); Mean Corpuscular Volume 101.4 fL (80.0-94.0); Mean Platelet Volume 9.1 fL (9.5-13.5); Platelet Count 150 10^3/uL (150-450); Red Blood Count 3.65 10^6/uL (4.70-6.10); Red Cell Distribution Width 14.3 % (11.0-15.0); White Blood Count 2.8 10^3/uL (4.0-11.0)
--- NOTE | 2024-09-26 05:00 | RESP.RT ---
Patient is not tolerating bipap at all. Patient has had the bipap off more then he has worn it. Keeps calling out to take it off for a drink and just does not want to wear it. Encouraging patient to keep it on for a few hours till morning.
[2024-09-26 05:11] LABS: Alanine Aminotransferase 20 U/L (16-63); Albumin Globulin Ratio 0.8; Albumin Level 2.4 g/dL (3.4-5.0); Alkaline Phosphatase 104 U/L (46-116); Anion Gap 8.4; Aspartate Amino Transferase 32 U/L (15-37); BUN Creatinine Ratio 15.2; Bilirubin Total 0.5 mg/dL (0.2-1.0); Carbon Dioxide 36.8 mmol/L (21.0-32.0); Chloride 97 mmol/L (98-107); Estimated GFR (African America >60 (>=60 mL/min/1.73m^2); Estimated GFR (Non-African Ame >60 (>=60 mL/min/1.73m^2); Globulin 3.1 g/dL; Glucose 390 mg/dL (74-106); Magnesium 1.5 mg/dL (1.8-2.4); Potassium 4.2 mmol/L (3.5-5.1); Sodium 138 mmol/L (136-145); Total Protein 5.5 g/dL (6.4-8.2); Troponin I High Sensitivity 7.9 pg/mL (4.0-76.1)
[2024-09-26 05:16] LABS: Atypical Lymphocytes Abs Man 0.08; Lymphocytes Absolute Manual 0.22 10^3/uL (1.20-3.80); Segmented Neut Absolute Manual 2.49 10^3/uL (1.4-6.5)
[2024-09-26 05:17] LABS: Stomatocytes 2+
[2024-09-26] MEDS: 0.9 % SODIUM CHLORIDE 1,000 ML 125 ML IV ×2 (08:11→16:22)
[2024-09-26] MEDS: BUDESONIDE 0.5 MG/2 ML AMPULE NEB IH ×2 (11:56→23:19)
[2024-09-26] MEDS: LORAZEPAM 2 MG/ML VIAL 1 MG IV (12:02)
--- NOTE | 2024-09-26 13:25 | PM.HP ---
HPI H&P: HPI History of Present Illness Chief complaint: SOB-COPD, HYPOXIA, RESPIRATORY DISTRESS, COPD Narrative: 59-year-old male with past medical history of COPD with emphysema, chronic respiratory failure with hypoxia currently on 3 L oxygen presented to ER via ambulance for generalized weakness/lightheadedness and worsening hypoxia with pulse ox noted to be 75% on 3 L when EMS arrived. Patient reports that he has been experiencing worsening shortness of breath for past few weeks. He has been progressively increasing his oxygen to 5 L. He called EMS because he could not catch breath and also felt lightheaded and overall weak. Patient continues to smoke daily despite his severe COPD/emphysema. Workup in ER revealed acute on chronic respiratory failure with hypoxia and hypercapnia for which patient was placed on BiPAP. He was also treated with IV Solu-Medrol, DuoNebs along with IV magnesium. He remained on BiPAP overnight intermittently as he would take it off every now and then and eventually in the morning refused to wear BiPAP anymore. Patient is DNR comfort care and was originally intended to be admitted to ICU but given that he is DNR comfort care, he was admitted to [facility] floor. Patient was transition to 6 L of oxygen via nasal cannula but was hypoxic with pulse ox down in the 80s with increased work of breathing, using accessory muscles of respiration and reluctantly agreed to using high flow oxygen. I reassessed him on high flow oxygen/Vapotherm and he was saturating 90 to 92% on 70% FiO2. He is still considerably short of breath, and had a difficult time talking to me because of his dyspnea. Opioid HPI Opioid Management Most Recent Pain and Opioid Data: Last Pain Scale 2 03/26/24 18:07 03/26/24 Last Pain Assessment 09/26/24 12:21 Last ORT Total Score 7 09/26/24 12:14 09/26/24 Last ORT Risk Category Moderate Risk 09/26/24 12:14 09/26/24 Review of Systems ROS Status of ROS 10 or more systems reviewed and unremarkable except as noted in history and below [facility] Medical History (Updated 09/26/24 @ 13:27 by Shaikh Conrad MD) (HFpEF) heart failure with preserved ejection fraction ?I50.30 - Unspecified diastolic (congestive) heart failure (ICD-10) Severe protein-calorie malnutrition ?E43 - Unspecified severe protein-calorie malnutrition (ICD-10) Acute on chronic diastolic heart failure ?I50.33 - Acute on chronic diastolic (congestive) heart failure (ICD-10) Alcohol abuse ?F10.10 - Alcohol abuse, uncomplicated (ICD-10) Opioid use disorder in remission ?F11.91 - Opioid use, unspecified, in remission (ICD-10) GERD (gastroesophageal reflux disease) ?K21.9 - Gastro-esophageal reflux disease without esophagitis (ICD-10) Kidney disease ?N28.9 - Disorder of kidney and ureter, unspecified (ICD-10) Liver disease ?K76.9 - Liver disease, unspecified (ICD-10) COPD (chronic obstructive pulmonary disease) ?J44.9 - Chronic obstructive pulmonary disease, unspecified (ICD-10) Emphysema of lung ?J43.9 - Emphysema, unspecified (ICD-10) Family History (Updated 03/25/24 @ 01:59 by Amaris Ku RN) Mother Family history of cancer Other Family history of COPD (chronic obstructive pulmonary disease) Social History Within the past year, how often did you have a drink containing alcohol: 4 or more times a week Within the past year, how many standard drinks containing alcohol did you have on a typical day: 7 to 9 Within the past year, how often did you have six or more drinks on one occasion: daily or almost daily Total score: 10 Score interpretation: A score of 4 or more indicates drinking is likely to affect patient's safety. Smoking status: Current every day smoker Non-prescribed substance use: former substance user and cannabis (any form) Highest level of school completed/degree received: high school graduate Are you now , , , , never or living with a partner: never In a typical week, how many times do you talk on the telephone with family, friends, or neighbors: twice per week How often do you get together with friends or relatives: twice per week How often do you attend samaritan or jehovah's witness services: never Do you belong to any clubs or organizations such as samaritan groups unions, fraternal or athletic groups, or school groups: no Total score: 1 Score interpretation: A score of less than or equal to 1 indicates the most socially isolated. Little interest or pleasure in doing things: nearly every day Feeling down, depressed, or hopeless: nearly every day Feel stressed/tense/nervous/anxious/difficulty sleeping: to some extent Do you think of yourself as: straight/heterosexual Gender Identity: male Meds Home Medications and Allergies Home Medications ?Medication ?Instructions ?Recorded ?Confirmed ?Type albuterol sulfate 90 mcg/actuation 2 inh inhalation Q4H 05/21/23 09/25/24 History aerosol inhaler budesonide-formoterol HFA 160 2 puff inhalation Q12H 05/21/23 09/25/24 History mcg-4.5 mcg/actuation aerosol inhaler (Symbicort) montelukast 10 mg tablet 10 mg PO QDAY 05/21/23 09/25/24 History albuterol sulfate 90 mcg/actuation 2 inh inhalation Q4H PRN shortness 03/27/24 09/25/24 Rx aerosol inhaler (Ventolin HFA) of breath or wheezing #6.7 grams furosemide 20 mg tablet (Lasix) 20 mg PO DAILY #30 tabs 03/27/24 Rx metoprolol succinate 25 mg 25 mg PO DAILY #30 tabs 03/27/24 Rx tablet,extended release 24 hr (Toprol XL) albuterol sulfate 2.5 mg/3 mL mg 09/25/24 History (0.083 %) solution for nebulization Allergies Allergy/AdvReac Type Severity Reaction Status Date / Time No Known Drug Allergies Allergy Verified 05/21/23 22:55 Exam Constitutional Vital Signs, click to edit/add: Last Vital Signs Temp 98.6 F 09/26/24 11:26 Pulse 114 H 09/26/24 11:26 Resp 28 H 09/26/24 11:26 BP 122/79 09/26/24 11:26 Pulse Ox 83 L 09/26/24 11:57 O2 Del Method Nasal Cannula 09/26/24 11:26 O2 Flow Rate 6 09/26/24 11:57 FiO2 60 09/26/24 07:35 General appearance: cooperative, in distress, anxious, ill appearing and frail appearing Nutritional appearance: underweight Respiratory Effort & inspection: tachypneic and labored Auscultation: rhonchi, wheezes and diminished lung sounds Other: Conversational dyspnea noted Cardio Common normals: regular rhythm, S1 normal heart sound and S2 normal heart sound Rate: tachycardic GI Common normals: Normal to inspection, nondistended, normoactive bowel sounds present, soft to palpation, non-tender and no hepatosplenomegaly Extremity Common normals: normal to inspection and full ROM Neuro Common normals: oriented x3, moves all extremities and no focal motor deficits Psych Common normals: mental status grossly normal, thought process normal, denies homicidal ideation and denies suicidal ideation Results Labs Labs: Short CBC 09/25/24 09/26/24 Range/Units 18:10 04:47 WBC 6.3 2.8 L (4.0-11.0) 10^3/uL Hgb 14.6 12.5 L (14.0-18.0) g/dL Hct 43.4 37.0 L (42.0-54.0) % Plt Count 163 150 (150-450) 10^3/uL BMP 09/25/24 09/26/24 18:09 04:47 Sodium 139 138 Potassium 4.3 4.2 Chloride 96 L 97 L Carbon Dioxide 42.5 H 36.8 H BUN 6.0 L 12.0 Creatinine 0.53 L 0.79 Glucose 86 390 H Calcium 9.3 8.0 L Liver Function 09/25/24 09/26/24 Range/Units 18:09 04:47 Total Bilirubin 1.0 0.5 (0.2-1.0) mg/dL AST 36 32 (15-37) U/L ALT 20 20 (16-63) U/L Alkaline Phosphatase 117 H 104 (46-116) U/L Albumin 3.1 L 2.4 L (3.4-5.0) g/dL ABG ABG results: 09/25/24 09/26/24 18:09 04:47 VBG pH 7.388 7.411 VBG pCO2 76.2 H* 56.8 H Assessment and Plan Assessment and Plan (1) Acute and chronic respiratory failure with hypoxia: (2) Acute exacerbation of chronic obstructive pulmonary disease: (3) (HFpEF) heart failure with preserved ejection fraction: Qualifiers: Heart failure chronicity: chronic Qualified Code(s): I50.32 - Chronic diastolic (congestive) heart failure (4) Multiple pulmonary nodules: (5) Lactic acidosis: (6) GERD (gastroesophageal reflux disease): Qualifiers: Esophagitis presence: esophagitis presence not specified Qualified Code(s): K21.9 - Gastro-esophageal reflux disease without esophagitis Plan Patient currently on IV Solu-Medrol, DuoNebs. Added saline nebs every 8 hour along with guaifenesin. Reviewed CTA chest that did not reveal acute pulmonary embolism but suspicious lung nodule along with possible mucous plugging. Added OPEP. Hold IV fluids and Lasix. Lactic acidosis resolved. Continue with high flow oxygen and wean off to nasal cannula as tolerated. Discussed with patient that because of his work of breathing, he will benefit from BiPAP but he is adamantly refusing it. I tried to discuss goals of care with him but because of his dyspnea, it was difficult to have a meaningful conversation with him. Will continue with current course of treatment. Critical care time over 50-minute spent on patient's evaluation, assessment, formulation of treatment plan and coordination of care. Patient at high risk of poor prognosis and acute respiratory/hemodynamic decline and required high level of alertness, repeat assessments multiple times to ensure he is clinically improving and not declining further.
[2024-09-26] MEDS: GUAIFENESIN 600 MG TAB.ER.12H PO ×2 (13:50→21:07)
[2024-09-26] MEDS: MAGNESIUM SULFATE IN WATER 2 GM/50 ML PREMIX IV (13:50)
--- NOTE | 2024-09-26 14:06 | SWNOTE1 ---
SW consulted for Advanced Directives and heat. SW did speak with case management prior to seeing patitent. Pt has a space heater that he uses, but also uses his oven for heat. Pt also wears home oxygen and smokes. Pt is intertested in completing HCPOA, but was going to call his sister to make sure she is alright being listed. SW spoke with pt in regards to Advanced Directives and he would like to complete, has not spoke to his sister, but stated she will be fine with it. SW to get booklet and assist with completing HCPOA. Nurse came in room and had to speak with pt. SW to et booklet. Physical therapy was in room when SW returned. SW to stop back.
--- NOTE | 2024-09-26 15:08 | SWNOTE1 ---
SW stopped back in and spoke to pt about Advanced Directives. Pt voiced he is tired today and he will do them tomorrow with SW. SW then spoke to pt about discharge plans. Pt does live at home alone. His sister used to live with him, but she ended up moving out. He voiced his sister orders groceries from [employer] and goes to pick them up and delivers them to his home. Pt does not drive. He does use a walker at home. Pt also voiced he has 3 space heaters and sometimes turns on the oven for heat. Pt voiced he does have electrcity and water. SW asked if he has had anyone look at his furnace to fix it? He stated he does not have the money. SW to look in to [facility] to see if they have any assistance. SW asked pt if he would be interested in meals on wheels? He stated someone delivered meals a week ago, but did not come back this week. SW to call [facility]. SW did speak with pt about home health services as well. NUBIA explained what HH was. Pt voiced he would do that. He stated he went to outpt therapy in past as well. SW to review therapy notes to see what recommendations are. SW to reach out to [facility] and follow up with pt.
--- NOTE | 2024-09-26 15:12 | SWNOTE1 ---
SW also stressed the importance of not smoking while wearing oxygen. Pt then stated he has burnt himself before on his face. He stated it is just a habit and he forgets. SW advised to not continue to smoke and use O2.
--- NOTE | 2024-09-26 15:19 | SWNOTE1 ---
NUBIA called [facility] and spoke to the person in charge of the home weatherizaton program. She voiced there is a 2-4 month wait list in regards to furnaces and assistance for utilities. She took down his information and will be mailing him an application. NUBIA also sent email to Dorothy at [facility] that assist with meals on wheels.
--- NOTE | 2024-09-26 15:46 | SWNOTE1 ---
NUBIA called [facility] and no 02 from there. NUBIA to check again with pt.
[2024-09-26] MEDS: SODIUM CHLORIDE 3% INHALATION 15 ML NEB IH ×2 (15:57→23:19)
[2024-09-26] MEDS: IPRATROPIUM/ALBUTEROL SULFATE 3 ML AMPUL.NEB IH ×3 (15:58→23:19)
--- NOTE | 2024-09-26 16:00 | SWNOTE1 ---
SW was able to speak with pt and pt's sister in room. They were not sure where he has home oxygen from. Sister does assist pt as needed. Pt was prescribed home oxygen from his cost control specialist. Dr. Carey. NUBIA to attempt to look her up. At this time no further concerns. NUBIA did advise pt's sister that we were possibly looking in to HH and meals on wheels.
--- NOTE | 2024-09-26 16:07 | SWNOTE1 ---
NUBIA looked up [employer] and she was from [employer]. SW called [employer] and pt does get his home oxygen from them, 2 liters continuous. She stated that they have an updated script and progress note, but no recent testing. The progress note and script are from August. 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 She stated his account is on hold due to no recent walk test. SW asked if they would curing pickling packer the oxygen? She stated no it just means they will stop billing through his insurance and he will have to pay for it. SW to update nurse and doctor. SW informed case management as well.
[2024-09-26] MEDS: CEFTRIAXONE 1,000 MG in 0.9 % SODIUM CHLORIDE 50 ML 100 MG IV (20:11)
[2024-09-26] MEDS: AZITHROMYCIN 500 MG in 0.9 % SODIUM CHLORIDE 250 ML 250 MG IV (21:06)
--- NOTE | 2024-09-26 22:28 | PC.NURSE ---
Patient c/o seeing spots almost like bugs flying around his room. Patient is daily drinker 2-3 a day of beer. RN explained withdraw symptoms and medications can be given to help. Patient stated I don't want it to ruin my beer buzz when I get out Education given on dangers of withdraw and patient voiced understanding. REVENUE ENFORCEMENT AGENT notified and CIWA sale started
[2024-09-27] VITALS (17 sets, daily range): BP systolic 108–155; BP diastolic 72–88; PULSE 86–101; TEMP 36.5–36.9; O2SAT 85–97
[2024-09-27] MEDS: METHYLPREDNISOLONE SOD SUCC PF 40 MG/ML VIAL IVP ×4 (00:08→17:08)
[2024-09-27] MEDS: MULTIVITAMIN TABLET 1 TAB PO ×2 (00:44→09:08)
[2024-09-27] MEDS: LORAZEPAM 1 MG TABLET PO ×2 (00:44→09:08)
[2024-09-27] MEDS: FOLIC ACID 1 MG TABLET PO ×2 (00:44→09:08)
[2024-09-27 00:49] LABS: Glucometer 145 mg/dL (74-106)
[2024-09-27] MEDS: 0.9 % SODIUM CHLORIDE 1,000 ML 125 ML IV ×2 (01:46→09:08)
[2024-09-27] MEDS: IPRATROPIUM/ALBUTEROL SULFATE 3 ML AMPUL.NEB IH ×6 (03:59→23:56)
[2024-09-27 06:13] LABS: Basophils Percent Auto 0.1 % (0.2-2.0); Eosinophils Absolute Auto 0.1 10^3/uL (0.0-0.7); Eosinophils Percent Auto 0.5 % (0.9-7.0); Hematocrit 34.3 % (42.0-54.0); Hemoglobin 11.9 g/dL (14.0-18.0); Immature Granulocytes Abs Auto 0.11 10^3/uL (0.00-0.03); Immature Granulocytes Pct Auto 0.7 % (0.0-0.5); Lymphocytes Absolute Auto 0.5 10^3/uL (1.2-3.8); Lymphocytes Percent Auto 3.1 % (20.5-60.0); Mean Corpuscular HGB Conc 34.7 g/dL (29.9-35.2); Mean Platelet Volume 9.3 fL (9.5-13.5); Monocytes Absolute Auto 0.3 10^3/uL (0.3-0.8); Monocytes Percent Auto 1.8 % (1.7-12.0); Neutrophils Absolute Auto 15.3 10^3/uL (1.4-6.5); Neutrophils Percent Auto 93.8 % (43.0-75.0); Platelet Count 124 10^3/uL (150-450); Red Cell Distribution Width 14.2 % (11.0-15.0); White Blood Count 16.3 10^3/uL (4.0-11.0)
[2024-09-27 06:33] LABS: Alanine Aminotransferase 16 U/L (16-63); Albumin Globulin Ratio 0.9; Albumin Level 2.5 g/dL (3.4-5.0); Alkaline Phosphatase 83 U/L (46-116); Anion Gap 10.7; Aspartate Amino Transferase 27 U/L (15-37); BUN Creatinine Ratio 17.4; Bilirubin Total 0.7 mg/dL (0.2-1.0); Calcium 8.5 mg/dL (8.5-10.1); Carbon Dioxide 33.2 mmol/L (21.0-32.0); Chloride 98 mmol/L (98-107); Estimated GFR (African America >60 (>=60 mL/min/1.73m^2); Estimated GFR (Non-African Ame >60 (>=60 mL/min/1.73m^2); Globulin 2.8 g/dL; Glucose 137 mg/dL (74-106); Potassium 3.9 mmol/L (3.5-5.1); Sodium 138 mmol/L (136-145); Total Protein 5.3 g/dL (6.4-8.2)
[2024-09-27] MEDS: SODIUM CHLORIDE 3% INHALATION 15 ML NEB IH ×3 (07:46→23:56)
[2024-09-27] MEDS: METOPROLOL SUCCINATE 25 MG TAB.ER.24H PO (09:08)
[2024-09-27] MEDS: MONTELUKAST SODIUM 10 MG TABLET PO (09:08)
[2024-09-27] MEDS: GUAIFENESIN 600 MG TAB.ER.12H PO ×2 (09:09→21:28)
--- NOTE | 2024-09-27 10:07 | P.IMPN_ITS ---
Progress Note: A&P Assessment and Plan (1) Acute and chronic respiratory failure with hypoxia: Assessment and Plan: Improved from before but still dyspneic and hypoxic, requiring high low O2. (2) Acute exacerbation of chronic obstructive pulmonary disease: Assessment and Plan: c/w solumedrol, duonebs. on empirical rocephin/azithromycin. Still quite dyspneic and hypoxic (3) (HFpEF) heart failure with preserved ejection fraction: Assessment and Plan: On IVF, clinically dry. Qualifiers: Heart failure chronicity: chronic Qualified Code(s): I50.32 - Chronic diastolic (congestive) heart failure (4) Multiple pulmonary nodules: Assessment and Plan: Suspicious nodules, will need outpatient f/u (5) Lactic acidosis: Assessment and Plan: Due to hypoxia. (6) GERD (gastroesophageal reflux disease): Assessment and Plan: C/w PPI Qualifiers: Esophagitis presence: esophagitis presence not specified Qualified Code(s): K21.9 - Gastro-esophageal reflux disease without esophagitis (7) Alcohol withdrawal: Assessment and Plan: In alcohol withdrawal, CIWA 8 this morning. C/w ativan as needed Qualifiers: Complication of substance-induced condition: uncomplicated Qualified Code(s): F10.930 - Alcohol use, unspecified with withdrawal, uncomplicated Plan Patient is still hypoxic, dyspneic and requiring high flow oxygen. He is overall better but needs continued inpatient treatment, monitoring. Continue with IV steroids, DuoNebs. Wean off oxygen as tolerated. Use Ativan from 1 mg to 2 mg every 4 hours as needed. Increase IV fluids to 75 an hour. Internal Medicine - PN: Subj Subjective Interval history: Seen and examined. Still SOB, dyspneic but overall better. Currently on high flow O2. No overnight events Exam Constitutional Vital Signs, click to edit/add: Last Vital Signs Temp 97.7 F 09/27/24 07:42 Pulse 87 09/27/24 07:50 Resp 20 09/27/24 07:50 BP 155/85 H 09/27/24 07:42 Pulse Ox 95 09/27/24 07:50 O2 Del Method Vapotherm 09/27/24 07:50 O2 Flow Rate 40 09/27/24 07:50 FiO2 65 09/27/24 07:50 General appearance: cooperative, ill appearing and frail appearing Nutritional appearance: underweight Respiratory Effort & inspection: tachypneic Auscultation: diminished lung sounds Other: Conversational dyspnea noted Cardio Common normals: regular rhythm, S1 normal heart sound and S2 normal heart sound Rate: tachycardic Extremity Common normals: normal to inspection and full ROM Neuro Common normals: oriented x3, moves all extremities and no focal motor deficits Psych Common normals: mental status grossly normal, thought process normal, denies homicidal ideation and denies suicidal ideation Internal Medicine - PN: Obj Da Labs Labs: Laboratory Results - last 24 hr 09/27/24 09/27/24 09/27/24 00:48 05:37 05:57 WBC 16.3 H RBC 3.50 L Hgb 11.9 L Hct 34.3 L MCV 98.0 H MCH 34.0 MCHC 34.7 RDW 14.2 Plt Count 124 L MPV 9.3 L Neut % (Auto) 93.8 H Lymph % (Auto) 3.1 L [place] % (Auto) 1.8 Eos % (Auto) 0.5 L Baso % (Auto) 0.1 L Neut # (Auto) 15.3 H Lymph # (Auto) 0.5 L [place] # (Auto) 0.3 Eos # (Auto) 0.1 Baso # (Auto) 0.0 Abs Immat Gran (auto) 0.11 H Imm/Tot Granulo (auto) 0.7 H Sodium 138 Potassium 3.9 Chloride 98 Carbon Dioxide 33.2 H Anion Gap 10.7 BUN 8.0 Creatinine 0.46 L Est GFR ( Amer) >60 Est GFR (Non-Af Amer) >60 BUN/Creatinine Ratio 17.4 Glucose 137 H Calcium 8.5 Total Bilirubin 0.7 AST 27 ALT 16 Alkaline Phosphatase 83 Total Protein 5.3 L Albumin 2.5 L Globulin 2.8 Albumin/Globulin Ratio 0.9 POC Glucose 145 H
--- NOTE | 2024-09-27 10:42 | CM.NOTE ---
Rounds made with Dr. Martines. Dr. Martines discussed diagnostic tests and plan of care w Marek. Marek verbalized understanding. No plan for discharge today. PT/OT eval ordered.
[2024-09-27] MEDS: BUDESONIDE 0.5 MG/2 ML AMPULE NEB IH ×2 (11:35→23:56)
--- NOTE | 2024-09-27 12:44 | SWNOTE1 ---
SW reviewed therapy notes and PT and OT did at least recommend HH if pt is not agreeable to SNF. SW to speak with pt.
--- NOTE | 2024-09-27 13:17 | SWNOTE1 ---
SW stopped back in to speak with patient about Advanced Directives and SNF vs HH. As SW was talking to pt about completing Advanced Directives, pt was looking around and picking at things with his hands. SW asked pt if he knew where he was, he stated [facility]. SW advised he was at [facility]. SW asked pt if he was seeing things in his room? He stated spiders. SW asked what he was picking at with his hands/fingers? He stated he was picking up paper and then he stated he was picking up his cigarettes. NUBIA did explain to pt that he is at the [facility] right now and that there is no spiders in his room and he does not have his cigarettes. SW let pt know that SW is going to speak with his nurse. NUBIA updated nurse that pt is having hallucinations at this time. SW not able to complete HCPOA and not able to converse with pt about SNF or HH services.
[2024-09-27] MEDS: LORAZEPAM 1 MG TABLET 2 MG PO ×3 (13:22→23:15)
--- NOTE | 2024-09-27 19:52 | PC.NURSE ---
Patient is more anxious, with hallucinations. Taking Vapotherm off. For safety reasons patient moved closer to nurses station for closer monitoring
[2024-09-27] MEDS: CEFTRIAXONE 1,000 MG in 0.9 % SODIUM CHLORIDE 50 ML 100 MG IV (20:50)
[2024-09-27] MEDS: AZITHROMYCIN 500 MG in 0.9 % SODIUM CHLORIDE 250 ML 250 MG IV (21:26)
[2024-09-27] MEDS: 0.9 % SODIUM CHLORIDE 1,000 ML 75 ML IV (23:11)
[2024-09-27 23:55] LABS: Bilirubin Urine NEGATIVE (NEGATIVE); Blood Urine NEGATIVE (NEGATIVE); Clarity Urine CLEAR (CLEAR); Color Urine LT. YELLOW (YELLOW); Glucose Urine UA NEGATIVE (NEGATIVE); Ketones Urine NEGATIVE (NEGATIVE); Leukocyte Esterase Urine NEGATIVE (NEGATIVE); Nitrite Urine NEGATIVE (NEGATIVE); Protein Urine NEGATIVE (NEG/TRACE); Specific Gravity Urine 1.015 (1.005-1.025); Urobilinogen Urine 0.2 EU/dL (0.2-1.0)
[2024-09-27 23:56] LABS: Urine Microscopic Indicated NO
[2024-09-28] VITALS (19 sets, daily range): BP systolic 120–164; BP diastolic 77–102; PULSE 78–106; TEMP 36.4–37.7; O2SAT 87–96
[2024-09-28] MEDS: METHYLPREDNISOLONE SOD SUCC PF 40 MG/ML VIAL IVP ×2 (00:55→05:34)
[2024-09-28] MEDS: IPRATROPIUM/ALBUTEROL SULFATE 3 ML AMPUL.NEB IH ×5 (04:00→20:03)
[2024-09-28] MEDS: LORAZEPAM 1 MG TABLET 2 MG PO ×2 (04:11→10:09)
[2024-09-28 05:33] LABS: Basophils Percent Auto 0.1 % (0.2-2.0); Eosinophils Percent Auto 0.3 % (0.9-7.0); Hematocrit 36.5 % (42.0-54.0); Immature Granulocytes Abs Auto 0.12 10^3/uL (0.00-0.03); Immature Granulocytes Pct Auto 1.1 % (0.0-0.5); Lymphocytes Absolute Auto 0.4 10^3/uL (1.2-3.8); Lymphocytes Percent Auto 3.4 % (20.5-60.0); Mean Corpuscular HGB Conc 35.6 g/dL (29.9-35.2); Mean Corpuscular Hemoglobin 34.5 pg (25.9-34.0); Mean Corpuscular Volume 96.8 fL (80.0-94.0); Mean Platelet Volume 9.7 fL (9.5-13.5); Monocytes Absolute Auto 0.2 10^3/uL (0.3-0.8); Monocytes Percent Auto 1.8 % (1.7-12.0); Neutrophils Absolute Auto 10.6 10^3/uL (1.4-6.5); Neutrophils Percent Auto 93.3 % (43.0-75.0); Platelet Count 106 10^3/uL (150-450); Red Blood Count 3.77 10^6/uL (4.70-6.10); Red Cell Distribution Width 13.5 % (11.0-15.0); White Blood Count 11.3 10^3/uL (4.0-11.0)
[2024-09-28 05:48] LABS: Alanine Aminotransferase 18 U/L (16-63); Albumin Globulin Ratio 0.9; Albumin Level 2.5 g/dL (3.4-5.0); Alkaline Phosphatase 72 U/L (46-116); Anion Gap 12.1; Aspartate Amino Transferase 32 U/L (15-37); BUN Creatinine Ratio 15.6; Bilirubin Total 1.1 mg/dL (0.2-1.0); Calcium 8.4 mg/dL (8.5-10.1); Carbon Dioxide 30.2 mmol/L (21.0-32.0); Chloride 92 mmol/L (98-107); Estimated GFR (African America >60 (>=60 mL/min/1.73m^2); Estimated GFR (Non-African Ame >60 (>=60 mL/min/1.73m^2); Globulin 2.8 g/dL; Glucose 122 mg/dL (74-106); Potassium 3.3 mmol/L (3.5-5.1); Sodium 131 mmol/L (136-145); Total Protein 5.3 g/dL (6.4-8.2)
[2024-09-28] MEDS: MULTIVITAMIN TABLET 1 TAB PO (08:48)
[2024-09-28] MEDS: GUAIFENESIN 600 MG TAB.ER.12H PO (08:48)
[2024-09-28] MEDS: MONTELUKAST SODIUM 10 MG TABLET PO (08:48)
[2024-09-28] MEDS: THIAMINE MONONITRATE (VIT B1) 100 MG TABLET PO (08:48)
[2024-09-28] MEDS: METOPROLOL SUCCINATE 25 MG TAB.ER.24H PO (08:48)
[2024-09-28] MEDS: FOLIC ACID 1 MG TABLET PO (08:48)
--- NOTE | 2024-09-28 09:57 | CM.NOTE ---
Rounds made with Dr. Martines, pt denies any hallucinations and is oriented to person and place this AM. No discharge today.
--- NOTE | 2024-09-28 10:38 | P.IMPN_ITS ---
Progress Note: A&P Assessment and Plan (1) Acute and chronic respiratory failure with hypoxia: Assessment and Plan: Improving. On 6 L of oxygen via nasal cannula now. (2) Acute exacerbation of chronic obstructive pulmonary disease: Assessment and Plan: c/w solumedrol, duonebs. on empirical rocephin/azithromycin. Improving dyspnea and hypoxia. Decrease Solu-Medrol to 40 twice daily (3) (HFpEF) heart failure with preserved ejection fraction: Assessment and Plan: Discontinue IV fluids. Monitor volume status closely while on steroids. Qualifiers: Heart failure chronicity: chronic Qualified Code(s): I50.32 - Chronic diastolic (congestive) heart failure (4) Multiple pulmonary nodules: Assessment and Plan: Suspicious nodules, will need outpatient f/u (5) Lactic acidosis: Assessment and Plan: Due to hypoxia. (6) GERD (gastroesophageal reflux disease): Assessment and Plan: C/w PPI Qualifiers: Esophagitis presence: esophagitis presence not specified Qualified Code(s): K21.9 - Gastro-esophageal reflux disease without esophagitis (7) Alcohol withdrawal: Assessment and Plan: Continue with Ativan as needed. Alcohol withdrawal is also improving. His last drink was 09/26/2024 Qualifiers: Complication of substance-induced condition: uncomplicated Qualified Code(s): F10.930 - Alcohol use, unspecified with withdrawal, uncomplicated Plan Patient clinically better but is still hypoxic and requiring 6 L of oxygen via nasal cannula. Continue with IV steroids, IV antibiotics and DuoNebs. Requires continued inpatient treatment for continued shortness of breath and hypoxia. Goals of care discussed with patient. Explained admitting diagnosis, treatment plan and diagnostic testing. All questions and concerns answered. Case/care plan was also discussed with patient's nurse and case management. Internal Medicine - PN: Subj Subjective Interval history: Seen and examined. Appears considerably comfortable and improved from yesterday. On 6 L of oxygen nasal cannula. Patient was in severe alcohol withdrawal last evening with active hallucinations. Much more improved with Ativan today but still has mild alcohol withdrawal. Exam Constitutional Vital Signs, click to edit/add: Last Vital Signs Temp 99.8 F 09/28/24 03:38 Pulse 87 09/28/24 08:04 Resp 16 09/28/24 08:04 BP 126/77 09/28/24 08:04 Pulse Ox 94 L 09/28/24 09:53 O2 Del Method Nasal Cannula 09/28/24 08:04 O2 Flow Rate 6 09/28/24 08:04 FiO2 45 09/28/24 04:00 General appearance: cooperative, ill appearing and frail appearing Nutritional appearance: underweight Respiratory Auscultation: diminished lung sounds Other: Conversational dyspnea noted. Coarse breath sounds. Cardio Common normals: regular rhythm, S1 normal heart sound and S2 normal heart sound Rate: tachycardic Extremity Common normals: normal to inspection and full ROM Neuro Common normals: oriented x3, moves all extremities and no focal motor deficits Psych Common normals: mental status grossly normal, thought process normal, denies homicidal ideation and denies suicidal ideation Internal Medicine - PN: Obj Da Labs Labs: Laboratory Results - last 24 hr 09/27/24 09/28/24 22:30 05:08 WBC 11.3 H RBC 3.77 L Hgb 13.0 L Hct 36.5 L MCV 96.8 H MCH 34.5 H MCHC 35.6 H RDW 13.5 Plt Count 106 L MPV 9.7 Neut % (Auto) 93.3 H Lymph % (Auto) 3.4 L [place] % (Auto) 1.8 Eos % (Auto) 0.3 L Baso % (Auto) 0.1 L Neut # (Auto) 10.6 H Lymph # (Auto) 0.4 L [place] # (Auto) 0.2 L Eos # (Auto) 0.0 Baso # (Auto) 0.0 Abs Immat Gran (auto) 0.12 H Imm/Tot Granulo (auto) 1.1 H Sodium 131 L Potassium 3.3 L Chloride 92 L Carbon Dioxide 30.2 Anion Gap 12.1 BUN 7.0 Creatinine 0.45 L Est GFR ( Amer) >60 Est GFR (Non-Af Amer) >60 BUN/Creatinine Ratio 15.6 Glucose 122 H Calcium 8.4 L Total Bilirubin 1.1 H AST 32 ALT 18 Alkaline Phosphatase 72 Total Protein 5.3 L Albumin 2.5 L Globulin 2.8 Albumin/Globulin Ratio 0.9 Urine Color Lt. yellow Urine Clarity Clear Urine pH 8.0 Ur Specific Jarratt 1.015 Urine Protein Negative Urine Glucose (UA) Negative Urine Ketones Negative Urine Occult Blood Negative Urine Nitrite Negative Urine Bilirubin Negative Urine Urobilinogen 0.2 Ur Leukocyte Esterase Negative
--- NOTE | 2024-09-28 10:46 | SWNOTE1 ---
SW stopped in to speak with pt. Pt is sitting in chair with eyes closed. SW woke pt up. He voiced he was tired, pt did know he was at the [facility]. Pt voiced he is feeling better, just tired. Pt and SW spoke about Advanced Directives, pt voiced right now he is too tired to complete. SW did express that it would only take about 10 minutes to complete. Pt stated maybe later. SW then spoke with him about SNF or HH services. SW advised pt that therapy is recommending a short term SNF stay for strengthening. SW explained to pt that SW would have to find a facility that is in network with his insurance, which may be limited. SW also expressed that not many facilities allow smoking. SW also let him know that if he is there for rehab he would stay until his insurance cut him. Pt then asked if he is allowed to leave and go to the store or leave and come back the next day? SW advised pt that he would not be able to do this. If the insurance knows you are able to leave and come back, then they will not pay for him to be there. SW expressed to pt that he may be able to have his sister take him out for a few hours then return, but he can't just walk out and return whenever he wants. SW again expressed SW would have to find a place that accepts his insurance and allow smoking, which may not happen. SW did advise that it would only be short term. Pt then stated he thinks he will just go home. SW to stop back in later to discuss again. Pt is agreeable to have HH services come in. NUBIA to see who takes pt's [place] Medicaid insurance. NUBIA sent email to [facility], but they are not taking managed Medicaid plans only [place] Medicaid. SW sent referral to [facility], they have been the only company taking managed Medicaid plans.
--- NOTE | 2024-09-28 10:57 | SWNOTE1 ---
NUBIA did reach out to [facility], just to see if they accept [place] medicaid and allow smoking, just in case pt agrees to go to SNF. [facility] does take insurance, but no smoking.
[2024-09-28] MEDS: POTASSIUM CHLORIDE 40 MEQ in 0.9 % SODIUM CHLORIDE 250 ML 67.5 MEQ IV (11:02)
--- NOTE | 2024-09-28 11:34 | PT.DAILY ---
Physical Therapy Daily Note PT Daily Note/Assess Start: 09/26/24 14:06 Freq: Status: Active Protocol: Document 09/28/24 11:30 [email or web address] (Rec: 09/28/24 11:34 [email or web address] [id number]) Visit Not Completed Visit Not Completed Visit Not Completed Other Due to: Other Reason Visit Patient with nursing x 2 attempts, and then declines Not Completed 3rd attempt due to fatigue. Patient is up in chair, sleeping in recliner. Will attempt PT later today if available. Physical Therapy Daily Note/Assessment Time In/Time Out Time In 11:30 Time Out 11:30 GG. Functional Abilities and Goals-Complete for Swing Bed Patients Only [id number]. Self-Care [id number]. Mobility
[2024-09-28] MEDS: SODIUM CHLORIDE 0.9% INHALATION 3 ML NEB IH (11:37)
[2024-09-28] MEDS: BUDESONIDE 0.5 MG/2 ML AMPULE NEB IH (11:37)
[2024-09-28] MEDS: 0.9 % SODIUM CHLORIDE 1,000 ML 75 ML IV (11:38)
--- NOTE | 2024-09-28 12:32 | SWNOTE1 ---
[facility] is not able to accept due to low staffing. sent referral to [address] Sabine at [facility] did get back to and they do allow smoking and take insurance. Correction from previous documentation [place] [facility] does not allow smoking but takes insurance.
--- NOTE | 2024-09-28 12:37 | SWNOTE1 ---
SW reached out to [facility] to see if they accept [facility] Medicaid, waiting to hear back.
--- NOTE | 2024-09-28 12:46 | SWNOTE1 ---
SW stopped in pt's room. Pt in bed at this time, sleeping, SW to stop back in later today.
--- NOTE | 2024-09-28 13:19 | SWNOTE1 ---
NUBIA reached out to [facility] and they do not accept insurance.
--- NOTE | 2024-09-28 13:47 | SWNOTE1 ---
SW called [facility] and they do take pt's insurance, but not sure they have staffing in this area to cover PT/OT and nurse. She stated to send referral. Referral sent to [facility]. Referral included face sheet, ED note, H&P, provider notes, and PT/OT notes.
--- NOTE | 2024-09-28 18:52 | PC.NURSE ---
nurse went into patients room to change his IV dressing. RN noticed a smell of alcohol around the patient. Iv dressing change was completed. But iv continuously oozing. RN noticed a bottle of root beer on the bedside table that was very pale in color. RN smelled bottle and could smell alcohol in it. RN informed the patient that this was not allowed and dumped the bottle down the drain. While the RN was changing the patient, a tobacco vape pen was also found and confiscated. Dr. Martines notified. No orders received
[2024-09-28 19:39] LABS: Ethanol 162 mg/dL
--- NOTE | 2024-09-28 22:27 | PM.EN ---
Event Note Event Note: 2009 - Notified by nursing patient found with alcohol in his room; was in a root beer bottle. Patient admitted to having alcohol in his possessions and has been drinking it during his hospitalization. Now, wants to leave AMA. Alcohol level checked; result 162, previously 80. FaceTime eval with [facility] present. Patient calm, cooperative, following commands, speech clear and appropriate. Oriented to self, place, month, and year. States day is the 15. He acknowledges having intermittent confusion, hallucinations, shakiness, and anxiety over the past couple of days. However, has not had any symptoms since early this afternoon. He admits to drinking alcohol he brought to the hospital to help with symptoms. States he is tired of being in the bed, going to the bathroom on himself, and not being able to get up and around by himself. Patient noted PT worked with him today. Offered to adjust medications for alcohol withdrawal management. Also, discussed at length risks (worsening of illnesses, ) and benefits (improvement, resolution of illnesses, management of alcohol w/d symptoms) associated with staying for continued care of other illnesses versus leaving AMA. Encouraged him to reconsider decision to leave and stay hospitalized. He asked if he could have alcohol if he stayed. Advised this would not be possible. He asked if he could come back in a few days if he decided he needed more care. I assured and instructed him to call 911 and come back at anytime if he wants/needs to. He stated understanding. I addressed all his questions and concerns. Overall, patient appears cognitively intact and appropriate to make an informed decision about his care. His sister, Kim Sigala ([phone]) arrived to take patient home. She confirmed that patient lives alone, but neighbors check in on him frequently. VSS on baseline 3L oxygen. Patient condition overall stable at this time. Nursing provided AMA paperwork and patient signed it. Left with sister.
--- NOTE | 2024-09-29 15:01 | CM.DCFOLLOWU ---
Pt left AMA
--- NOTE | 2024-10-02 10:06 | SWNOTE1 ---
NUBIA received a message from Dorothy at [employer]. She stated the number was not working. NUBIA provided her with number that was listed and with sister's number. NUBIA did advise Dorothy that pt did sign out AMA from hospital.
--- NOTE | 2024-10-04 15:21 | SWNOTE1 ---
SW heard back from Dorothy from [employer] and she did get the correct number from pt's sister. She spoke to pt and based on the information he provided to her, pt did not qualify for [employer]. She is going to mail him other resources.
== END 2024-09-28 21:05 | disposition left against medical advice (07) | DRG 133 ==
LOC: ER 21:55 → MS 09-26 11:11
PROVIDERS: Physician Assistant; Registered Nurse; Admitting Provider Internal Medicine; Emergency Provider Emergency Medicine; Visit Provider Internal Medicine
DX: J96.21 Acute and chronic respiratory failure with hypoxia (principal); J43.9 Emphysema, unspecified; R91.8 Other nonspecific abnormal finding of lung field; Z53.29 Procedure and treatment not carried out because of patient's decision for other reasons; E83.42 Hypomagnesemia; Z99.81 Dependence on supplemental oxygen; F17.210 Nicotine dependence, cigarettes, uncomplicated; J96.22 Acute and chronic respiratory failure with hypercapnia; I50.32 Chronic diastolic (congestive) heart failure; E87.20 Acidosis, unspecified; Z66 Do not resuscitate; K21.9 Gastro-esophageal reflux disease without esophagitis; F10.930 Alcohol use, unspecified with withdrawal, uncomplicated; R63.6 Underweight; F10.951 Alcohol use, unspecified with alcohol-induced psychotic disorder with hallucinations; Y90.6 Blood alcohol level of 120-199 mg/100 ml; S22.41XD Multiple fractures of ribs, right side, subsequent encounter for fracture with routine healing; X58.XXXD Exposure to other specified factors, subsequent encounter; Z68.1 Body mass index [BMI] 19.9 or less, adult
CPT/HCPCS: 36415; 51798; 71275; 80053; 80320; 81003; 82800; 82948; 83605; 83735; 83880; 84484; 85007; 85025; 85027; 85378; 85610; 87040; 87070; 87086; 87804; 87811; 93005; 94640; 94660; 94667; 94668; 94761; 94799; 96361; 96365; 96367; 96375; 96376; 97162; 97165; 97535; 99291; 99292; 99407; J0456; J0696; J2060; J2919; J3475; J3480; Q9967